=== PATIENT | male | born 1965 | race Caucasian/White ===

== ENCOUNTER 2019-11-16 14:54 | Outpatient (CLI) | payer MEDICARE ==
[2019-11-16 17:38] LABS: HGB - HEMOGLOBIN 10.4 g/dL (14.0-18.0); MEAN CORPUSCULAR HEMOGLOBIN 29.3 pg (27.0-31.0); MEAN CORPUSCULAR VOLUME 94.4 fL (80.0-94.0); MEAN PLATELET VOLUME 10.5 fL (7.4-11.4); RED BLOOD COUNT 3.55 10^6/uL (4.70-6.10); RED CELL DISTRIBUTION WIDTH 13.7 % (12.0-15.0); WHITE BLOOD COUNT 6.8 x10^3/uL (4.8-10.8)
[2019-11-16 20:11] LABS: CALCIUM 8.6 mg/dL (8.5-10.3); CREATININE 5.9 mg/dL (0.6-1.2); PHOSPHORUS 4.7 mg/dL (2.5-4.6); URIC ACID 7.9 mg/dL (2.6-7.2)
== END 2019-11-16 14:55 | disposition home or self-care (01) ==
LOC: LAB.S 14:54
PROVIDERS: ATTEND Internal Medicine Nephrology
DX: N18.5 Chronic kidney disease, stage 5 (principal)
CPT/HCPCS: 36415; 80069; 83970; 84550; 85027

== ENCOUNTER 2020-01-26 15:12 | Outpatient (CLI) | payer MEDICARE | END 2020-01-26 15:13 | disposition EMS.NT | LOC: EMS 15:12 | PROVIDERS: ATTEND Surgery | DX: Z03.89 Encounter for observation for other suspected diseases and conditions ruled out (principal) ==

== ENCOUNTER 2020-04-30 15:52 | Outpatient (CLI) | payer MEDICARE ==
[2020-04-30 16:21] LABS: HGB - HEMOGLOBIN 9.9 g/dL (14.0-18.0); MEAN CORPUSCULAR HGB CONC 32.5 g/dL (32.0-36.0); MEAN CORPUSCULAR VOLUME 92.4 fL (80.0-94.0); MEAN PLATELET VOLUME 9.5 fL (7.4-11.4); RED BLOOD COUNT 3.3 10^6/uL (4.70-6.10); RED CELL DISTRIBUTION WIDTH 13.4 % (12.0-15.0); WHITE BLOOD COUNT 6.9 x10^3/uL (4.8-10.8)
[2020-04-30 16:51] LABS: FERRITIN 99.2 ng/mL (23.9-336.2)
[2020-04-30 17:44] LABS: ALBUMIN 4.9 g/dL (3.2-5.5); CALCIUM 8.8 mg/dL (8.5-10.3); PHOSPHORUS 6.2 mg/dL (2.5-4.6)
[2020-04-30 17:50] LABS: CREATININE 8.4 mg/dL (0.6-1.2)
== END 2020-04-30 15:53 | disposition home or self-care (01) ==
LOC: LAB 15:52
PROVIDERS: ATTEND Internal Medicine Nephrology
DX: N18.5 Chronic kidney disease, stage 5 (principal); D63.1 Anemia in chronic kidney disease
CPT/HCPCS: 36415; 80069; 82728; 83540; 83970; 84466; 85027

== ENCOUNTER 2020-06-01 15:53 | Outpatient (CLI) | payer MEDICARE ==
[2020-06-01 16:23] LABS: HGB - HEMOGLOBIN 10.9 g/dL (14.0-18.0); MEAN CORPUSCULAR HEMOGLOBIN 29.9 pg (27.0-31.0); MEAN CORPUSCULAR HGB CONC 32.3 g/dL (32.0-36.0); MEAN CORPUSCULAR VOLUME 92.3 fL (80.0-94.0); MEAN PLATELET VOLUME 9.6 fL (7.4-11.4); RED BLOOD COUNT 3.65 10^6/uL (4.70-6.10); RED CELL DISTRIBUTION WIDTH 13.5 % (12.0-15.0); WHITE BLOOD COUNT 7.9 x10^3/uL (4.8-10.8)
[2020-06-01 16:46] LABS: ALBUMIN 5.1 g/dL (3.2-5.5); CALCIUM 9.6 mg/dL (8.5-10.3); PHOSPHORUS 5.5 mg/dL (2.5-4.6)
[2020-06-02 12:43] LABS: HEPATITIS B SURFACE ANTIGEN NON-REACTIVE (NON-REACTIVE)
[2020-06-04 13:50] LABS: CREATININE 9.8 mg/dL (0.6-1.2)
== END 2020-06-01 15:54 | disposition home or self-care (01) ==
LOC: LAB 15:53
PROVIDERS: ATTEND Internal Medicine Nephrology
DX: N18.5 Chronic kidney disease, stage 5 (principal)
CPT/HCPCS: 36415; 80069; 85027; 86317; 86704; 87340

== ENCOUNTER 2020-06-30 17:57 | Emergency (ER) | payer MEDICARE, MEDICAID ==
[2020-06-30] MEDS ORDERED: DOXEPIN 10 MG CAPSULE PO STA (18:23)
[2020-06-30] MEDS ORDERED: predniSONE 20 MG TABLET PO STA (18:23)
--- NOTE | 2020-06-30 18:30 | ED Physician Documentation ---
History of Present Illness - Stated complaint Stated Complaint: RT ARM RASH - POST OP - Chief complaint Chief Complaint: Allergic Rx - History obtained from History obtained from: Patient - Additonal information Additional information: 54-year-old gentleman being prepared for dialysis, had a fistula placed at the [facility] on Thursday and within the 48 hours afterwards developed quite itchy rash all over especially the right arm, chest, and posterior neck. No shortness of breath. Review of Systems Constitutional: denies: Fever, Chills Eyes: denies: Loss of vision, Decreased vision Ears: denies: Loss of hearing, Ear pain Nose: denies: Rhinorrhea / runny nose, Congestion PD PAST MEDICAL HISTORY - Present Medications Home Medications: Ambulatory Orders Medication Instructions Recorded Confirmed Doxepin [SINEquan] 10 mg PO TID PRN #14 capsule 06/30/20 predniSONE [Deltasone] 60 mg PO DAILY 5 Days #15 tablet 06/30/20 - Allergies Allergies/Adverse Reactions: Allergies Allergy/AdvReac Type Severity Reaction Status Date / Time gabapentin Allergy Unknown Verified 06/30/20 18:15 Penicillins Allergy Unknown Verified 06/30/20 18:15 povidone-iodine Allergy Unknown Verified 06/30/20 18:15 [From Betadine] soap [From Betadine] Allergy Unknown Verified 06/30/20 18:15 PD ED PE NORMAL - Vitals Vital signs reviewed: Yes - General General: Alert and oriented X 3, No acute distress - HEENT HEENT: PERRL, EOMI - Extremities Extremities: Other (He scratching at himself and has a maculopapular rash that is diffuse but most market on the upper chest, shoulders, posterior neck. Fistula seems to be functioning with positive thrill.) - Neuro Neuro: Alert and oriented X 3, Normal speech Results - Vitals Vitals: Vital Signs - 24 hr 06/30/20 06/30/20 18:15 18:40 Temperature 36.9 C 37.2 C Heart Rate 102 H 84 Respiratory 18 16 Rate Blood Pressure 187/97 H 163/92 H O2 Saturation 98 100 Oxygen O2 Source Room air PD MEDICAL DECISION MAKING - ED course ED course: Suspect this is an allergic Reaction to antibiotics given perioperatively based on the appearance and he was treated with steroids and doxepin. Departure - Departure Disposition: 01 Home, Self Care Clinical Impression: Allergic urticaria Condition: Good Record reviewed to determine appropriate education?: Yes Instructions: ED Drug React Allergic Prescriptions: predniSONE [Deltasone] 60 mg PO DAILY 5 Days #15 tablet Doxepin [SINEquan] 10 mg PO TID PRN #14 capsule PRN Reason: Itching Comments: At your next follow-up visit notify the [facility] that you likely had a drug reaction to something given in the perioperative period. Return if worse. Discharge Date/Time: 06/30/20 19:04
[2020-06-30 18:41] VITALS: BP 163/92
== END 2020-06-30 19:04 | disposition home or self-care (01) ==
LOC: ED 17:57
DX: L50.0 Allergic urticaria (principal)
CPT/HCPCS: 99282; 99283; A9270; J7512

== ENCOUNTER 2020-07-05 17:31 | Emergency (ER) | payer MEDICARE, MEDICAID ==
[2020-07-05 17:58] VITALS: BP 131/73
--- NOTE | 2020-07-05 18:20 | ED Physician Documentation ---
History of Present Illness - Stated complaint Stated Complaint: RASH - Chief complaint Chief Complaint: General - Additonal information Additional information: This document was created in error. please see the other document signed for the same date and encounter PD PAST MEDICAL HISTORY - Past Medical History Past Medical History: Yes Cardiovascular: Hypertension, Arrhythmia Respiratory: None Neuro: Peripheral neuropathy, Seizure disorder Endocrine/Autoimmune: None GI: None : Dialysis, Renal insuffiency HEENT: None Musculoskeletal: Osteoarthritis, Gout Derm: Eczema, Psoriasis - Past Surgical History Past Surgical History: Yes General: Gastric surgery Ortho: Amputation - Present Medications Home Medications: Ambulatory Orders Medication Instructions Recorded Confirmed Doxepin [SINEquan] 10 mg PO TID PRN #14 capsule 06/30/20 predniSONE [Deltasone] 60 mg PO DAILY 5 Days #15 tablet 06/30/20 Hydrocortisone [Procto-Med Hc] 30 gm RC BID #1 tube 07/05/20 - Allergies Allergies/Adverse Reactions: Allergies Allergy/AdvReac Type Severity Reaction Status Date / Time gabapentin Allergy Unknown Verified 07/05/20 17:54 Penicillins Allergy Unknown Verified 07/05/20 17:54 povidone-iodine Allergy Unknown Verified 07/05/20 17:54 [From Betadine] soap [From Betadine] Allergy Unknown Verified 07/05/20 17:54 - Social History Does the pt smoke?: No Smoking Status: Never smoker Does the pt drink ETOH?: No Does the pt have substance abuse?: No - Immunizations Immunizations are current?: Yes - POLST Patient has POLST: No Results - Vitals Vitals: Vital Signs - 24 hr 07/05/20 07/05/20 07/05/20 17:54 17:58 18:30 Temperature 37.4 C 37.4 C Heart Rate 64 64 90 Respiratory 16 16 16 Rate Blood Pressure 131/73 H 131/73 H 131/73 H O2 Saturation 95 100 100 Oxygen O2 Source Room air Departure - Departure Disposition: 01 Home, Self Care Clinical Impression: Rash and nonspecific skin eruption Condition: Stable Follow-Up: Rima Boyd MD [Primary Care Provider] - Prescriptions: Hydrocortisone [Procto-Med Hc] 30 gm RC BID #1 tube Comments: Rao your rash may be secondary to your kidney failure. On exam your skin appears excessively dry. I would like you to apply a good moisturizer to all of your skin including your face. I think this will help with the itch. For the faint rash on your hands please apply the steroid cream twice a day. If you find that the rash is worsening, you have blistering of your skin, the rash is present in your mouth or you have any other emergent concerns please return to the emergency department Discharge Date/Time: 07/05/20 18:37
--- NOTE | 2020-07-05 18:22 | ED Physician Documentation ---
History of Present Illness - Stated complaint Stated Complaint: RASH - Chief complaint Chief Complaint: General - History of Present Illness Timing: How many weeks ago (1) - Additonal information Additional information: 54-year-old male presents to the emergency department for evaluation of a pruritic rash. He was seen for similar about 5 days ago and it was thought to possibly be an allergic drug eruption. He was given doxepin in the ER and a prescription for steroids. However he only took the steroids for 2 days secondary to GI upset. This gentleman recently had a fistula placed in his right upper arm with the anticipation of starting dialysis next month. He reports the rash as intensely pruritic and he feels like his lips are chapped. He states that sometimes his face feels tingly.This gentleman has had no fevers, the rash is only present on his arms and face. Not present on his right leg or left thigh. no tongue or lips swelling. no dyspnea. He continues to make urine Review of Systems Constitutional: reports: Reviewed and negative Eyes: reports: Reviewed and negative Ears: reports: Reviewed and negative Nose: reports: Reviewed and negative Throat: reports: Reviewed and negative Cardiac: reports: Reviewed and negative Respiratory: reports: Reviewed and negative GI: reports: Reviewed and negative : reports: Reviewed and negative Skin: reports: Rash Musculoskeletal: reports: Reviewed and negative, Other (Left AKA) PD PAST MEDICAL HISTORY - Past Medical History Past Medical History: Yes Cardiovascular: Hypertension, Arrhythmia Respiratory: None Neuro: Peripheral neuropathy, Seizure disorder Endocrine/Autoimmune: None GI: None : Dialysis, Renal insuffiency HEENT: None Musculoskeletal: Osteoarthritis, Gout Derm: Eczema, Psoriasis - Past Surgical History Past Surgical History: Yes General: Gastric surgery Ortho: Amputation - Present Medications Home Medications: Ambulatory Orders Medication Instructions Recorded Confirmed Doxepin [SINEquan] 10 mg PO TID PRN #14 capsule 06/30/20 predniSONE [Deltasone] 60 mg PO DAILY 5 Days #15 tablet 06/30/20 Hydrocortisone [Procto-Med Hc] 30 gm RC BID #1 tube 07/05/20 - Allergies Allergies/Adverse Reactions: Allergies Allergy/AdvReac Type Severity Reaction Status Date / Time gabapentin Allergy Unknown Verified 07/05/20 17:54 Penicillins Allergy Unknown Verified 07/05/20 17:54 povidone-iodine Allergy Unknown Verified 07/05/20 17:54 [From Betadine] soap [From Betadine] Allergy Unknown Verified 07/05/20 17:54 - Social History Does the pt smoke?: No Smoking Status: Never smoker Does the pt drink ETOH?: No Does the pt have substance abuse?: No - Immunizations Immunizations are current?: Yes - POLST Patient has POLST: No PD ED PE EXPANDED - General General: Alert, No acute distress, Well developed/nourished - HEENT HEENT: Atraumatic, PERRL - Neck Neck: Supple w/out meningeal sx. No: Adenopathy - Cardiac Cardiac: Regular Rate, Regular Rhythm, Murmur Present, Radial strong equal (2+ left radial. 1+ right radial and 1+ right ulnar. + bruit and thrill right UE fistula. mild swellign right forearm. soft compartment. normal movement of the RUE), Cap refill < 2 sec - Respiratory Respiratory: Clear to ausultation annalisa. No: Distress, Stridor - Abdomen Abdomen: Normal Bowel sounds. No: Tender to palpation - Back Back: Normal exam - Derm Derm: Normal color, Other (Very faint slightly raised macular rash on the dorsum of both hands. His skin in general looks dry. No rash is seen on face lips or oral mucosa.) Results - Vitals Vitals: Vital Signs - 24 hr 07/05/20 07/05/20 17:54 17:58 Temperature 37.4 C 37.4 C Heart Rate 64 64 Respiratory 16 16 Rate Blood Pressure 131/73 H 131/73 H O2 Saturation 95 100 Oxygen O2 Source Room air PD MEDICAL DECISION MAKING - ED course Complexity details: reviewed old records, re-evaluated patient, considered differential, d/w patient ED course: 54-year-old male re-presents to the emergency department for evaluation of a pruritic rash mostly on the dorsum of both of his hands. He also reports that he is been having tingling in his face and feels that his lips are chapped. He was seen for this about 5 days ago and a prescription for prednisone was issued but he only took it for 2 days secondary to GI discomfort. The etiology of this rashes not certain however I am suspicious that he is developing uremic urticaria secondary to his chronic kidney disease. He is scheduled to begin dialysis in a few weeks. Do recommend that this gentleman apply a good emollient or a moisturizer to all of his skin as I believe that that will help with the itching. I also recommend limited amount of steroid cream such as hydrocortisone on the dorsum of the hands. Departure - Departure Disposition: 01 Home, Self Care Clinical Impression: Rash and nonspecific skin eruption Condition: Stable Record reviewed to determine appropriate education?: Yes Follow-Up: Rima Boyd MD [Primary Care Provider] - Prescriptions: Hydrocortisone [Procto-Med Hc] 30 gm RC BID #1 tube Comments: Rao your rash may be secondary to your kidney failure. On exam your skin appears excessively dry. I would like you to apply a good moisturizer to all of your skin including your face. I think this will help with the itch. For the faint rash on your hands please apply the steroid cream twice a day. If you find that the rash is worsening, you have blistering of your skin, the rash is present in your mouth or you have any other emergent concerns please return to the emergency department
== END 2020-07-05 18:37 | disposition home or self-care (01) ==
LOC: ED 17:31
DX: R21 Rash and other nonspecific skin eruption (principal); I12.0 Hypertensive chronic kidney disease with stage 5 chronic kidney disease or end stage renal disease; N18.6 End stage renal disease
CPT/HCPCS: 99282; 99284

== ENCOUNTER 2020-07-23 11:06 | Emergency (ER) | payer MEDICARE, MEDICAID ==
--- NOTE | 2020-07-23 13:04 | ED Physician Documentation ---
History of Present Illness - Stated complaint Stated Complaint: POST OP WOUND CHECK - Chief complaint Chief Complaint: General - History obtained from History obtained from: Patient - Additonal information Additional information: Patient comes emergency department complaining of a small area of redness over his relatively newly placed dialysis fistula site. On his right forearm. Patient denies any fevers or chills. No body aches. No streaking. He does note that his crutches have armbands that do sometimes rub on the area. He states the area seems mildly sore. He is not yet receiving dialysis through the shunt. The patient does note that he has had swelling in the arm ever since the shunt placement 1 month ago. No other complaints at this time. Review of Systems Ten Systems: 10 systems reviewed and negative Constitutional: reports: Reviewed and negative Eyes: reports: Reviewed and negative Ears: reports: Reviewed and negative Nose: reports: Reviewed and negative Throat: reports: Reviewed and negative Cardiac: reports: Reviewed and negative Respiratory: reports: Reviewed and negative GI: reports: Reviewed and negative : reports: Reviewed and negative Skin: reports: Other (Redness) Musculoskeletal: reports: Reviewed and negative Neurologic: reports: Reviewed and negative Psychiatric: reports: Reviewed and negative Endocrine: reports: Reviewed and negative Immunocompromised: reports: Reviewed and negative PD PAST MEDICAL HISTORY - Past Medical History Past Medical History: Yes Cardiovascular: Hypertension, Arrhythmia Respiratory: None Neuro: Peripheral neuropathy, Seizure disorder Endocrine/Autoimmune: None GI: None : Dialysis, Renal insuffiency HEENT: None Musculoskeletal: Osteoarthritis, Gout Derm: Eczema, Psoriasis Other Past Medical History: Stage V chronic kidnew dx - Past Surgical History Past Surgical History: Yes General: Gastric surgery Ortho: Amputation - Present Medications Home Medications: Ambulatory Orders Medication Instructions Recorded Confirmed Doxepin [SINEquan] 10 mg PO TID PRN #14 capsule 06/30/20 predniSONE [Deltasone] 60 mg PO DAILY 5 Days #15 tablet 06/30/20 Hydrocortisone [Procto-Med Hc] 30 gm RC BID #1 tube 07/05/20 Clindamycin HCl [Clindamycin 300MG 300 mg PO Q6H #28 capsule 07/23/20 CAP] - Allergies Allergies/Adverse Reactions: Allergies Allergy/AdvReac Type Severity Reaction Status Date / Time gabapentin Allergy Unknown Verified 07/23/20 11:39 Penicillins Allergy Unknown Verified 07/23/20 11:39 povidone-iodine Allergy Unknown Verified 07/23/20 11:39 [From Betadine] soap [From Betadine] Allergy Unknown Verified 07/23/20 11:39 - Social History Does the pt smoke?: No Smoking Status: Never smoker Does the pt drink ETOH?: Yes Does the pt have substance abuse?: Yes Substance Use and Type: Marijuana - Immunizations Immunizations are current?: Yes - POLST Patient has POLST: No PD ED PE NORMAL - Vitals Vital signs reviewed: Yes - General General: Alert and oriented X 3, No acute distress - HEENT HEENT: Atraumatic, PERRL, EOMI, Moist mucous membranes - Neck Neck: Supple, no meningeal sign - Cardiac Cardiac: Strong equal pulses, Other (Pulsating AV fistula in right forearm with good thrill.) - Respiratory Respiratory: No respiratory distress - Derm Derm: Warm and dry, Other (Well-healed, healthy-appearing surgical site in patient's right forearm for dialysis fistula. Approximately 2 cm x 3 cm erythematous area along the wound without dehiscence. No fluctuance or induration. Area is mildly tender. Intensity of erythema is moderate.) - Extremities Extremities: No deformity, Other (Mild edema of right arm and hand. Incidentally, left AKA noted.) - Neuro Neuro: Alert and oriented X 3, Other - Psych Psych: Normal mood, Normal affect Results - Vitals Vitals: Vital Signs - 24 hr 07/23/20 11:39 Temperature 36.6 C Heart Rate 76 Respiratory 18 Rate Blood Pressure 153/72 H O2 Saturation 98 Oxygen O2 Source Room air PD MEDICAL DECISION MAKING - ED course Complexity details: considered differential, d/w patient ED course: I discussed with the patient that at this point in time, it is not clear whether he has an early cellulitis or whether he just has some irritation and inflammation over his incision from friction from his crutch cough. We have discussed that if the patient feels comfortable doing so, he may observe the area of redness over the next 12 to 24 hours and see if it grows. If it does, he should start his antibiotics. If not, then he may hold off and see if this goes away on its own, as he has no associated symptoms and his stated that the area has not really expanded since yesterday. I am giving him a prescription for clindamycin, which he states is the preferred antibiotic that his neph rologist has requested that he have for skin infection. We have discussed home management, as well as usual indications for return. Departure - Departure Disposition: 01 Home, Self Care Clinical Impression: Cellulitis Qualifiers: Site of cellulitis: extremity Site of cellulitis of extremity: upper extremity Laterality: right Qualified Code(s): L03.113 - Cellulitis of right upper limb Condition: Stable Instructions: ED Infec Skin Cellulitis Prescriptions: Clindamycin HCl [Clindamycin 300MG CAP] 300 mg PO Q6H #28 capsule Comments: You have a very small area of redness involving part of your fistula. It is not clear if this is from a cellulitis/skin infection versus just irritation from friction. If you feel comfortable doing so, you may observe the area over the next 12 to 24 hours and see if the area of redness is growing. If it is not, then it is unlikely that this is an infection. If it does seem to be expanding, then you should start the antibiotics which have been prescribed.
[2020-07-23 13:09] VITALS: BP 130/68
== END 2020-07-23 13:34 | disposition home or self-care (01) ==
LOC: ED 11:06
DX: L03.113 Cellulitis of right upper limb (principal); N18.5 Chronic kidney disease, stage 5; Z89.612 Acquired absence of left leg above knee; Z99.2 Dependence on renal dialysis
CPT/HCPCS: 36415; 80069; 83970; 85027; 87340; 99282; 99284

== ENCOUNTER 2020-07-23 13:40 | Outpatient (CLI) | payer MEDICARE, MEDICAID ==
[2020-07-23 14:10] LABS: HGB - HEMOGLOBIN 8.6 g/dL (14.0-18.0); MEAN CORPUSCULAR HEMOGLOBIN 29.4 pg (27.0-31.0); MEAN CORPUSCULAR HGB CONC 30.8 g/dL (32.0-36.0); MEAN CORPUSCULAR VOLUME 95.2 fL (80.0-94.0); RED BLOOD COUNT 2.93 10^6/uL (4.70-6.10); RED CELL DISTRIBUTION WIDTH 13.7 % (12.0-15.0)
[2020-07-23 14:37] LABS: CALCIUM 8.7 mg/dL (8.5-10.3); PHOSPHORUS 6.7 mg/dL (2.5-4.6)
[2020-07-24 13:44] LABS: HEPATITIS B SURFACE ANTIGEN NON-REACTIVE (NON-REACTIVE)
== END 2020-07-23 13:41 | disposition home or self-care (01) ==
LOC: LAB 13:40
PROVIDERS: ATTEND Internal Medicine Nephrology
DX: N18.5 Chronic kidney disease, stage 5 (principal)
CPT/HCPCS: 36415; 80069; 83970; 85027; 87340

== ENCOUNTER 2020-08-01 09:00 | Emergency (ER) | payer MEDICARE, MEDICAID ==
--- NOTE | 2020-08-01 09:26 | ED Physician Documentation ---
PD HPI UPPER EXT INJURY - Stated complaint Stated Complaint: RT ARM SWELLING - POST DIALYSIS - Chief complaint Chief Complaint: Ext Problem - History obtained from History obtained from: Patient - Additonal information Additional information: He has a dialysis graft in the right upper extremity. It was finished on June 26 and they started using it on July 26. He had 2 successful dialysis sessions with the graft but yesterday in dialysis after the placement of the first needle it became immediately quite swollen and painful. They were unable to complete the dialysis. Review of Systems Constitutional: reports: Reviewed and negative Throat: reports: Reviewed and negative Cardiac: reports: Reviewed and negative Respiratory: reports: Reviewed and negative PD PAST MEDICAL HISTORY - Past Medical History Cardiovascular: Hypertension, Arrhythmia Respiratory: None Neuro: Peripheral neuropathy, Seizure disorder Endocrine/Autoimmune: None GI: None : Dialysis, Renal insuffiency HEENT: None Musculoskeletal: Osteoarthritis, Gout Derm: Eczema, Psoriasis - Past Surgical History Past Surgical History: Yes General: Gastric surgery Ortho: Amputation - Present Medications Home Medications: Ambulatory Orders Medication Instructions Recorded Confirmed Doxepin [SINEquan] 10 mg PO TID PRN #14 capsule 06/30/20 predniSONE [Deltasone] 60 mg PO DAILY 5 Days #15 tablet 06/30/20 Hydrocortisone [Procto-Med Hc] 30 gm RC BID #1 tube 07/05/20 Clindamycin HCl [Clindamycin 300MG 300 mg PO Q6H #28 capsule 07/23/20 CAP] - Allergies Allergies/Adverse Reactions: Allergies Allergy/AdvReac Type Severity Reaction Status Date / Time gabapentin Allergy Unknown Verified 08/01/20 09:18 Penicillins Allergy Unknown Verified 08/01/20 09:18 povidone-iodine Allergy Unknown Verified 08/01/20 09:18 [From Betadine] soap [From Betadine] Allergy Unknown Verified 08/01/20 09:18 - Social History Does the pt smoke?: No Smoking Status: Never smoker Does the pt drink ETOH?: Yes Does the pt have substance abuse?: Yes - Immunizations Immunizations are current?: Yes - POLST Patient has POLST: No PD ED PE NORMAL - Vitals Vital signs reviewed: Yes - General General: Alert and oriented X 3, No acute distress - HEENT HEENT: PERRL, EOMI - Extremities Extremities: No deformity (Status post left AKA), Other (The right upper extremity is edematous, tender especially medial to the bicep. There is a thrill. Distal pulses are normal. No evidence of infection.) - Neuro Neuro: Alert and oriented X 3, Normal speech - Psych Psych: Normal mood, Normal affect Results - Vitals Vitals: Vital Signs - 24 hr 08/01/20 08/01/20 09:11 10:15 Temperature 37.3 C 36.6 C Heart Rate 80 78 Respiratory 20 Rate Blood Pressure 103/51 L O2 Saturation 99 99 Oxygen O2 Source Room air - Labs Labs: Laboratory Tests 08/01/20 08/01/20 08/01/20 09:37 09:37 09:37 WBC 7.1 RBC 2.69 L Hgb 8.0 L Hct 26.6 L MCV 98.9 H MCH 29.7 MCHC 30.1 L RDW 14.5 Plt Count 359 MPV 9.3 Neut # (Auto) 4.6 Lymph # (Auto) 1.0 L [place] # (Auto) 0.6 Eos # (Auto) 0.9 H Baso # (Auto) 0.1 Absolute Nucleated RBC 0.00 Nucleated RBC % 0.0 PT 12.5 INR 1.1 Sodium 137 Potassium 5.0 Chloride 99 L Carbon Dioxide 25 Anion Gap 13.0 BUN 81 H* Creatinine 8.9 H* Estimated GFR (MDRD) 6 L Glucose 91 Calcium 8.6 PD MEDICAL DECISION MAKING - ED course ED course: 55-year-old gentleman on dialysis presents with right upper extremity swelling that happened fairly acutely during access of his graft. Ultrasound shows no vascular issue. This is all very consistent with infiltration and local bleeding in the subcutaneous area and muscle. No evidence of infection. Case discussed with vascular surgery in [place], recommends conservative treatment and continuing dialysis if able. Nephrology can refer him for alternative access if necessary. Departure - Departure Disposition: 01 Home, Self Care Clinical Impression: AV graft malfunction Qualifiers: Encounter type: initial encounter Qualified Code(s): T82.590A - [facility] hanical complication of surgically created arteriovenous fistula, initial encounter Condition: Good Record reviewed to determine appropriate education?: Yes Instructions: Hemodialysis Create Access Comments: An ultrasound was done today showing no problem with the vascular structures. Probably just had some bleeding after they accessed the graft and it went into the subcutaneous tissues and muscle. They should still try to access the graft around the affected area so that she can have dialysis. If they need an alternative site your procurement engineer needs to get you to the vascular surgeon again. Return if worsening.
[2020-08-01 09:40] LABS: BASOPHILS # (AUTO) 0.1 10^3/uL (0.0-0.1); BASOPHILS % (AUTO) 1.5 %; EOSINOPHILS # (AUTO) 0.9 10^3/uL (0.0-0.7); EOSINOPHILS % (AUTO) 11.9 %; LYMPHOCYTES % (AUTO) 14.1 %; MEAN CORPUSCULAR HEMOGLOBIN 29.7 pg (27.0-31.0); MEAN CORPUSCULAR HGB CONC 30.1 g/dL (32.0-36.0); MEAN CORPUSCULAR VOLUME 98.9 fL (80.0-94.0); MEAN PLATELET VOLUME 9.3 fL (7.4-11.4); MONOCYTES # (AUTO) 0.6 10^3/uL (0.0-1.0); NEUTROPHILS # (AUTO) 4.6 10^3/uL (1.5-6.6); NEUTROPHILS % (AUTO) 63.9 %; PLT - PLATELET COUNT 359 10^3/uL (130-450); RED BLOOD COUNT 2.69 10^6/uL (4.70-6.10); RED CELL DISTRIBUTION WIDTH 14.5 % (12.0-15.0); WHITE BLOOD COUNT 7.1 x10^3/uL (4.8-10.8)
[2020-08-01 09:54] LABS: INR 1.1 (0.8-1.2); PT - PROTHROMBIN TIME 12.5 secs (9.9-12.6)
[2020-08-01 09:58] LABS: CALCIUM 8.6 mg/dL (8.5-10.3)
[2020-08-01 10:00] LABS: CREATININE 8.9 mg/dL (0.6-1.2)
--- NOTE | 2020-08-01 11:26 | Ultrasound Report ---
PROCEDURE: Duplex Ext Veins Right INDICATIONS: RUE swelling, dialysis graft TECHNIQUE: Real-time imaging, as well as color and pulse Doppler interrogation, were performed of the right uppe r extremity deep veins. COMPARISON: None. FINDINGS: The deep veins are normally compressible, and free of intraluminal thrombus. Color and pu lse Doppler demonstrate normal phasic intraluminal flow. There is normal augmentation response to di stal compression maneuver. Right IJ, subclavian vein, axillary vein, and brachial vein are patent. Di stal brachial vein at at the dialysis graft is patent. The graft is patent throughout. No obvious pse udoaneurysm. Medial tibial vein, radial, and ulnar veins are patent. The cephalic vein is patent. There is subcutaneous edema in the region of clinical concern in the region of the medial upper right upper extremity. There are echogenic foci with posterior acoustic shadowing in the medial right uppe r arm. IMPRESSION: No right upper extremity DVT demonstrated. The dialysis graft is patent. Subcutaneous edema and echogenic foci with posterior acoustic shadowing in the medial right upper arm . This could be due to subcutaneous calcifications. Results were discussed with Ronan Celis at time of dictation. No skin erythema or crepitus. Reviewed by: Russ Gutierrez MD on 08/01/2020 11:24 AM PDT Approved by: Russ Gutierrez MD on 08/01/2020 11:24 AM PDT Station ID: [id number]
[2020-08-01 12:02] VITALS: BP 106/68
== END 2020-08-01 12:14 | disposition home or self-care (01) ==
LOC: ED 09:00
DX: T82.590A Other mechanical complication of surgically created arteriovenous fistula, initial encounter (principal); I10 Essential (primary) hypertension; G62.9 Polyneuropathy, unspecified; N28.9 Disorder of kidney and ureter, unspecified; Z99.2 Dependence on renal dialysis
CPT/HCPCS: 36415; 80048; 85025; 85610; 99283; 99284

== ENCOUNTER 2021-02-26 17:00 | Outpatient (CLI) | payer MEDICARE, MEDICAID | END 2021-02-26 17:01 | disposition critical access hospital (66) | LOC: EMS 17:00 | DX: R05 Cough (principal); I10 Essential (primary) hypertension | CPT/HCPCS: A0425; A0429 ==

== ENCOUNTER 2021-02-26 17:24 | Emergency (ER) | payer MEDICARE, MEDICAID ==
--- NOTE | 2021-02-26 18:12 | ED Physician Documentation ---
History of Present Illness - Stated complaint Stated Complaint: BRBPR - Chief complaint Chief Complaint: General - History obtained from History obtained from: Patient - History of Present Illness Timing: Today Pain level max: 0 Pain level now: 0 - Additonal information Additional information: Patient is a 55-year-old male who was at dialysis today. He states that he had a bowel movement and there was a small amount of blood on the toilet paper, bright red. States similar to past hemorrhoids. He states that the nurse called 911 and brought him to the emergency department. He denies any abdominal pain. No vomiting. No lightheadedness, no dizziness. He states that a few days ago he did cough up a drop of blood. Has not recurred since. Does not have any current chest pain. No recent travel, antibiotics. Nothing makes it better or worse Review of Systems Constitutional: denies: Fever, Chills Ears: denies: Ear pain Nose: denies: Rhinorrhea / runny nose, Congestion Throat: denies: Sore throat Cardiac: denies: Chest pain / pressure, Palpitations Respiratory: reports: Cough (Chronic, unchanged). denies: Dyspnea, Wheezing GI: denies: Abdominal Pain, Nausea, Vomiting, Constipation, Diarrhea : denies: Dysuria, Frequency, Hesitancy Skin: denies: Rash Musculoskeletal: denies: Neck pain, Back pain Neurologic: denies: Headache PD PAST MEDICAL HISTORY - Past Medical History Past Medical History: Yes Cardiovascular: Hypertension, Arrhythmia Respiratory: None Neuro: Peripheral neuropathy, Seizure disorder Endocrine/Autoimmune: None GI: None : Dialysis, Renal insuffiency HEENT: None Musculoskeletal: Osteoarthritis, Gout Derm: Eczema, Psoriasis - Past Surgical History Past Surgical History: Yes General: Gastric surgery Ortho: Amputation - Present Medications Home Medications: Ambulatory Orders Medication Instructions Recorded Confirmed Doxepin [SINEquan] 10 mg PO TID PRN #14 capsule 06/30/20 predniSONE [Deltasone] 60 mg PO DAILY 5 Days #15 tablet 06/30/20 Hydrocortisone [Procto-Med Hc] 30 gm RC BID #1 tube 07/05/20 Clindamycin HCl [Clindamycin 300MG 300 mg PO Q6H #28 capsule 07/23/20 CAP] Hydrocortisone [Anusol-Hc] 1 applic RC BID #1 tub 02/26/21 - Allergies Allergies/Adverse Reactions: Allergies Allergy/AdvReac Type Severity Reaction Status Date / Time gabapentin Allergy Unknown Verified 02/26/21 17:39 Penicillins Allergy Unknown Verified 02/26/21 17:39 povidone-iodine Allergy Unknown Verified 02/26/21 17:39 [From Betadine] soap [From Betadine] Allergy Unknown Verified 02/26/21 17:39 - Social History Does the pt smoke?: Yes Smoking Status: Current every day smoker Does the pt drink ETOH?: Yes Does the pt have substance abuse?: Yes Substance Use and Type: Marijuana - Immunizations Immunizations are current?: Yes - POLST Patient has POLST: No PD ED PE NORMAL - Vitals Vital signs reviewed: Yes - General General: Alert and oriented X 3, No acute distress, Well developed/nourished - HEENT HEENT: Moist mucous membranes - Neck Neck: Supple, no meningeal sign - Cardiac Cardiac: RRR, Strong equal pulses - Respiratory Respiratory: No respiratory distress, Clear bilaterally - Abdomen Abdomen: Soft, Non tender, Non distended - Rectal Rectal: Other (There is a moderate size external hemorrhoid. A small amount of bleeding noted from a erythematous area.) - Derm Derm: Warm and dry - Extremities Extremities: No edema, No calf tenderness / cord - Neuro Neuro: Alert and oriented X 3 - Psych Psych: Normal mood, Normal affect Results - Vitals Vitals: Vital Signs - 24 hr 02/26/21 02/26/21 02/26/21 17:29 17:39 18:35 Temperature 37.4 C Heart Rate 78 110 H 116 H Respiratory 14 16 18 Rate Blood Pressure 187/100 H 182/89 H 196/88 H O2 Saturation 91 L 92 93 Oxygen O2 Source Room air - Labs Labs: Laboratory Tests 02/26/21 02/26/21 02/26/21 18:15 18:15 18:15 WBC 8.1 RBC 3.54 L Hgb 11.2 L Hct 33.0 L MCV 93.2 MCH 31.6 H MCHC 33.9 RDW 14.2 Plt Count 194 MPV 8.9 Neut # (Auto) 6.6 Lymph # (Auto) 0.5 L [place] # (Auto) 0.8 Eos # (Auto) 0.2 Baso # (Auto) 0.1 Absolute Nucleated RBC 0.00 Nucleated RBC % 0.0 PT 13.6 H INR 1.2 APTT 28.6 Sodium 135 Potassium 3.8 Chloride 94 L Carbon Dioxide 24 Anion Gap 17.0 H BUN 36 H Creatinine 7.2 H* Estimated GFR (MDRD) 8 L Glucose 93 Calcium 8.7 Total Bilirubin 1.1 H AST 24 ALT 19 Alkaline Phosphatase 90 Total Protein 7.2 Albumin 4.3 Globulin 2.9 Albumin/Globulin Ratio 1.5 Lipase 21 L PD MEDICAL DECISION MAKING - ED course Complexity details: considered differential, d/w patient ED course: 55-year-old male with a small bleeding hemorrhoid. The bleeding resolved in the emergency department. Patient refuses any blood work or further evaluation at this time. We will place him on Anusol HC and have him follow-up with his doctor. Patient also states that he has chronic intermittent tachycardia and does not want any medication for this or work-up. This document was made in part using voice recognition software. While efforts are made to proofread this document, sound alike and grammatical errors may occur. Departure - Departure Disposition: 01 Home, Self Care Clinical Impression: Hemorrhoid Qualifiers: Hemorrhoid type: unspecified Qualified Code(s): K64.9 - Unspecified hemorrhoids Condition: Good Instructions: ED Hemorrhoids Follow-Up: DELANEY OBRIEN [Primary Care Provider] - Within 1 week Prescriptions: Hydrocortisone [Anusol-Hc] 1 applic RC BID #1 tub Comments: Prescription was sent to [facility] in [place]. Follow-up with your doctor for further care. Return if you worsen Discharge Date/Time: 02/26/21 18:45
[2021-02-26 18:21] LABS: BASOPHILS # (AUTO) 0.1 10^3/uL (0.0-0.1); EOSINOPHILS # (AUTO) 0.2 10^3/uL (0.0-0.7); EOSINOPHILS % (AUTO) 2.1 %; HGB - HEMOGLOBIN 11.2 g/dL (14.0-18.0); LYMPHOCYTES # (AUTO) 0.5 10^3/uL (1.5-3.5); LYMPHOCYTES % (AUTO) 5.6 %; MEAN CORPUSCULAR HEMOGLOBIN 31.6 pg (27.0-31.0); MEAN CORPUSCULAR HGB CONC 33.9 g/dL (32.0-36.0); MEAN CORPUSCULAR VOLUME 93.2 fL (80.0-94.0); MEAN PLATELET VOLUME 8.9 fL (7.4-11.4); MONOCYTES # (AUTO) 0.8 10^3/uL (0.0-1.0); MONOCYTES % (AUTO) 9.4 %; NEUTROPHILS # (AUTO) 6.6 10^3/uL (1.5-6.6); NEUTROPHILS % (AUTO) 81.8 %; PLT - PLATELET COUNT 194 10^3/uL (130-450); RED BLOOD COUNT 3.54 10^6/uL (4.70-6.10); RED CELL DISTRIBUTION WIDTH 14.2 % (12.0-15.0); WHITE BLOOD COUNT 8.1 x10^3/uL (4.8-10.8)
[2021-02-26 18:28] LABS: INR 1.2 (0.8-1.2); PT - PROTHROMBIN TIME 13.6 secs (9.9-12.6)
[2021-02-26 18:35] LABS: PARTIAL THROMBOPLASTIN TIME 28.6 secs (24.9-33.3)
[2021-02-26 18:36] LABS: ALBUMIN 4.3 g/dL (3.2-5.5); ALBUMIN/GLOBULIN RATIO 1.5 (1.0-2.2); BILIRUBIN,TOTAL 1.1 mg/dL (0.2-1.0); CALCIUM 8.7 mg/dL (8.5-10.3); POTASSIUM 3.8 mmol/L (3.5-5.0); TOTAL PROTEIN 7.2 g/dL (6.7-8.2)
[2021-02-26 18:37] LABS: CREATININE 7.2 mg/dL (0.6-1.2)
[2021-02-26 18:40] VITALS: BP 196/88
== END 2021-02-26 18:45 | disposition home or self-care (01) ==
LOC: EDUNIT# → ED 17:24 → SUPCPDRO 17:24 → ED 18:45
DX: K64.4 Residual hemorrhoidal skin tags (principal); K62.5 Hemorrhage of anus and rectum; I10 Essential (primary) hypertension; N28.9 Disorder of kidney and ureter, unspecified; Z99.2 Dependence on renal dialysis; F17.200 Nicotine dependence, unspecified, uncomplicated
CPT/HCPCS: 36415; 80053; 83690; 85025; 85610; 85730; 99283; 99284

== ENCOUNTER 2021-03-23 00:22 | Outpatient (CLI) | payer MEDICARE, MEDICAID | END 2021-03-23 00:23 | disposition critical access hospital (66) | LOC: EMS 00:22 | DX: R06.02 Shortness of breath (principal) | CPT/HCPCS: A0425; A0427 ==

== ENCOUNTER 2021-03-23 00:57 | Emergency (ER) | payer MEDICARE, MEDICAID ==
--- OUTSIDE RECORDS SUMMARY | 2021-03-23 01:20 | EXTERNAL MEDICAL SUMMARY RPT | Continuity of Care Document ---
:1965 Demographics Phone Unavailable Preferred Language Unknown Marital Status Unknown Taoist Affiliation Unknown Race Unknown Ethnic Group Unknown Author Organization [facility] Address [address] [place] [address] Phone Allergies Encounters Medications Problems Results
[2021-03-23 01:32] LABS: BASOPHILS # (AUTO) 0.1 10^3/uL (0.0-0.1); BASOPHILS % (AUTO) 0.8 %; EOSINOPHILS # (AUTO) 0.4 10^3/uL (0.0-0.7); HCT - HEMATOCRIT 29.8 % (42.0-52.0); HGB - HEMOGLOBIN 9.8 g/dL (14.0-18.0); LYMPHOCYTES # (AUTO) 0.4 10^3/uL (1.5-3.5); MEAN CORPUSCULAR HEMOGLOBIN 31.8 pg (27.0-31.0); MEAN CORPUSCULAR HGB CONC 32.9 g/dL (32.0-36.0); MEAN CORPUSCULAR VOLUME 96.8 fL (80.0-94.0); MEAN PLATELET VOLUME 8.8 fL (7.4-11.4); MONOCYTES # (AUTO) 0.5 10^3/uL (0.0-1.0); MONOCYTES % (AUTO) 4.5 %; NEUTROPHILS # (AUTO) 10.3 10^3/uL (1.5-6.6); NEUTROPHILS % (AUTO) 88.3 %; PLT - PLATELET COUNT 236 10^3/uL (130-450); RED BLOOD COUNT 3.08 10^6/uL (4.70-6.10); RED CELL DISTRIBUTION WIDTH 15.1 % (12.0-15.0); WHITE BLOOD COUNT 11.7 x10^3/uL (4.8-10.8)
[2021-03-23 01:55] LABS: ALBUMIN 3.6 g/dL (3.2-5.5); ALBUMIN/GLOBULIN RATIO 1.4 (1.0-2.2); BILIRUBIN,TOTAL 0.5 mg/dL (0.2-1.0); POTASSIUM 3.7 mmol/L (3.5-5.0); TOTAL PROTEIN 6.1 g/dL (6.7-8.2)
[2021-03-23 02:02] LABS: CREATININE 7.9 mg/dL (0.6-1.2)
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
[2021-03-23 03:48] LABS: B. PARAPERTUSSIS- RESP PCR PAN NOT DETECTED; B. PERTUSSIS- RESP PCR PANEL NOT DETECTED; C. PNEUMONIAE- RESP PCR PANEL NOT DETECTED; CORONAVIRUS 229E-RESP PCR NOT DETECTED; CORONAVIRUS HKU1-RESP PCR NOT DETECTED; CORONAVIRUS NL63-RESP PCR NOT DETECTED; CORONAVIRUS OC43-RESP PCR NOT DETECTED; HUMAN METAPNEUMOVIRUS NOT DETECTED; INFLUENZA A- RESP PCR PANEL NOT DETECTED; INFLUENZA B - RESP PCR PANEL NOT DETECTED; M. PNEUMONIAE- RESP PCR PANEL NOT DETECTED; PARAINFLUENZA VIRUS 1 NOT DETECTED; PARAINFLUENZA VIRUS 2 NOT DETECTED; PARAINFLUENZA VIRUS 3 NOT DETECTED; PARAINFLUENZA VIRUS 4 NOT DETECTED; RHINOVIRUS/ENTEROVIRUS NOT DETECTED; RSV- RESP PCR PANEL NOT DETECTED; SARS-CoV-2 -RESP PCR PANEL NOT DETECTED
[2021-03-23] MEDS ORDERED: oxyCODONE 5 MG TABLET PO STA ×2 (04:29→12:18)
[2021-03-23] MEDS ORDERED: LORazepam 0.5 MG TABLET PO STA (04:29)
[2021-03-23] MEDS ORDERED: LIDOCAINE 1% 2 ML VIAL MC ONE (06:31)
[2021-03-23] MEDS ORDERED: cefTRIAXone 1 GM VIAL IM STA (06:31)
[2021-03-23] MEDS ORDERED: IPRATROPIUM/ALBUTEROL 3 ML NEB INH STA (06:55)
[2021-03-23] MEDS ORDERED: LORazepam 2 MG/ML VIAL IVP STA (07:01)
[2021-03-23] MEDS ORDERED: DEXAMETHASONE 10 MG/ML VIAL IVP STA (07:06)
[2021-03-23] MEDS ORDERED: diphenhydrAMINE INJ 50 MG/ML VIAL IVP STA (07:06)
[2021-03-23] MEDS ORDERED: FUROSEMIDE 40 MG/4 ML VIAL IVP STA (07:06)
[2021-03-23] MEDS: NITROGLYCERIN 2% PASTE TOP STA (07:14)
[2021-03-23] MEDS ORDERED: LEVALBUTEROL 1.25 MG/3 ML NEB INH STA (07:30)
[2021-03-23] MEDS ORDERED: AZITHROMYCIN INJ 500 MG in SODIUM CHLORIDE 0.9% 250 ML IV STA (07:31)
[2021-03-23] MEDS ORDERED: ASPIRIN 325 MG TABLET PO STA (08:01)
--- NOTE | 2021-03-23 08:13 | XRAY Report ---
PROCEDURE: Chest 1 View X-Ray INDICATIONS: dyspnea TECHNIQUE: One view of the chest was acquired. COMPARISON: 03/23/2021 at 0101 hours FINDINGS: Surgical changes and devices: None. Lungs and pleura: Interval worsening of pulmonary status, with increasing interstitial and alveolar d ensity in the right lung and interstitial density in the left lung. Findings are consistent with eith er asymmetric pulmonary edema or right-sided pneumonia with superimposed pulmonary edema. Mediastinum: Mediastinal contours appear normal. Heart size is normal. Bones and chest wall: No suspicious bony lesions. Overlying soft tissues appear unremarkable. IMPRESSION: Interval worsening of pulmonary status consistent with either asymmetric pulmonary edema or right-marbella ed pneumonia with superimposed pulmonary edema. Reviewed by: Kenny Goncalves MD on 03/23/2021 8:12 AM PDT Approved by: Kenny Goncalves MD on 03/23/2021 8:12 AM PDT Station ID: [id number]
--- NOTE | 2021-03-23 09:49 | XRAY Report ---
PROCEDURE: Chest 1 View X-Ray INDICATIONS: Chest pain TECHNIQUE: One view of the chest was acquired. COMPARISON: FINDINGS: Surgical changes and devices: None. Lungs and pleura: No pleural effusions or pneumothorax. Lungs are abnormal, with asymmetric right g reater than left pneumonia pattern, without pleural thickening identified. Mediastinum: Mediastinal contours appear normal. Heart size is normal. Bones and chest wall: No suspicious bony lesions. Overlying soft tissues appear unremarkable. IMPRESSION: Moderately severe right and mild left pneumonia pattern, without pleural effusion or pleural thickeni ng. Reviewed by: Jt Beck MD on 03/23/2021 8:48 AM RIDGE Approved by: Jt Beck MD on 03/23/2021 8:48 AM RIDGE Station ID: [id number]
[2021-03-23 12:14] VITALS: BP 155/85
[2021-03-23] MEDS ORDERED: LORazepam 1 MG TABLET PO STA (12:24)
== END 2021-03-23 12:30 | disposition short-term general hospital (02) ==
LOC: EDUNIT# → EDBD → ED 00:57 → SUPCPDRO 00:57 → ED 12:30
DX: J18.9 Pneumonia, unspecified organism (principal); I12.0 Hypertensive chronic kidney disease with stage 5 chronic kidney disease or end stage renal disease; N18.6 End stage renal disease; I48.92 Unspecified atrial flutter; I45.10 Unspecified right bundle-branch block; Z20.822 Contact with and (suspected) exposure to COVID-19; F17.200 Nicotine dependence, unspecified, uncomplicated
CPT/HCPCS: 36415; 71045; 80053; 83605; 83690; 84484; 85025; 87040; 87631; 93005; 94640; 96365; 96372; 96375; 99284; 99285; A9270; J1200; J2060; J8499; 0202U; 85379

== ENCOUNTER 2021-03-23 12:33 | Outpatient (CLI) | payer MEDICARE, MEDICAID | END 2021-03-23 12:34 | disposition short-term general hospital (02) | LOC: EMS 12:33 | PROVIDERS: ATTEND Emergency Medicine | DX: R06.02 Shortness of breath (principal) | CPT/HCPCS: A0425; A0428 ==

== ENCOUNTER 2021-03-31 08:08 | Emergency (ER) | payer MEDICARE, MEDICAID ==
--- OUTSIDE RECORDS SUMMARY | 2021-03-31 08:11 | EXTERNAL MEDICAL SUMMARY RPT | Continuity of Care Document ---
:1965 Demographics Phone Unavailable Preferred Language Unknown Marital Status Unknown Yarsani Affiliation Unknown Race Unknown Ethnic Group Unknown Author Organization [facility] Address [address] [place] [address] Phone Allergies Encounters Medications Problems Results
--- OUTSIDE RECORDS SUMMARY | 2021-03-31 08:17 | EXTERNAL MEDICAL SUMMARY RPT | Continuity of Care Document ---
:1965 Demographics Phone Unavailable Preferred Language Unknown Marital Status Unknown Mandaen Affiliation Unknown Race Unknown Ethnic Group Unknown Author Organization [facility] Address [address] [place] [address] Phone Allergies Encounters Medications Problems Results
[2021-03-31] MEDS ORDERED: SODIUM CHLORIDE 0.9% 500 ML IV STA (08:39)
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
[2021-03-31 08:58] LABS: BASOPHILS # (AUTO) 0.1 10^3/uL (0.0-0.1); BASOPHILS % (AUTO) 0.8 %; EOSINOPHILS % (AUTO) 15.7 %; HCT - HEMATOCRIT 26.7 % (42.0-52.0); HGB - HEMOGLOBIN 8.5 g/dL (14.0-18.0); LYMPHOCYTES % (AUTO) 16.7 %; MEAN CORPUSCULAR HEMOGLOBIN 31.1 pg (27.0-31.0); MEAN CORPUSCULAR HGB CONC 31.8 g/dL (32.0-36.0); MEAN CORPUSCULAR VOLUME 97.8 fL (80.0-94.0); MEAN PLATELET VOLUME 9.1 fL (7.4-11.4); MONOCYTES # (AUTO) 0.7 10^3/uL (0.0-1.0); MONOCYTES % (AUTO) 10.8 %; NEUTROPHILS # (AUTO) 3.5 10^3/uL (1.5-6.6); NEUTROPHILS % (AUTO) 55.5 %; PLT - PLATELET COUNT 351 10^3/uL (130-450); RED BLOOD COUNT 2.73 10^6/uL (4.70-6.10); RED CELL DISTRIBUTION WIDTH 15.2 % (12.0-15.0); WHITE BLOOD COUNT 6.2 x10^3/uL (4.8-10.8)
[2021-03-31 09:09] LABS: ALBUMIN 3.4 g/dL (3.2-5.5); ALBUMIN/GLOBULIN RATIO 1.3 (1.0-2.2); BILIRUBIN,TOTAL 0.5 mg/dL (0.2-1.0); CALCIUM 8.3 mg/dL (8.5-10.3); CREATININE 5.1 mg/dL (0.6-1.2); POTASSIUM 4.2 mmol/L (3.5-5.0)
--- NOTE | 2021-03-31 09:17 | CT Report ---
PROCEDURE: HEAD WO INDICATIONS: fall, head injury TECHNIQUE: Noncontrast 4.5 mm thick angled axial sections acquired from the foramen magnum to the vertex. For r adiation dose reduction, the following was used: automated exposure control, adjustment of mA and/or kV according to patient size. COMPARISON: None. FINDINGS: Image quality: Motion artifact is noted. CSF spaces: Basal cisterns are patent. No extra-axial fluid collections. Ventricles are normal in size and shape. Brain: No midline shift. No intracranial masses or hemorrhage. Cardenas-white matter interface is norm al. Skull and face: Calvarium and visualized facial bones are intact, without suspicious lesions. Sinuses: Visualized sinuses and mastoids are clear. IMPRESSION: Limited study demonstrating no acute intracranial hemorrhage or other acute intracranial abnormality. Reviewed by: Gene Carranza MD on 03/31/2021 8:16 AM RIDGE Approved by: Gene Carranza MD on 03/31/2021 8:16 AM RIDGE Station ID: [id number]
[2021-03-31 09:31] VITALS: BP 121/65
== END 2021-03-31 09:42 | disposition home or self-care (01) ==
LOC: ED 08:08
DX: S09.90XA Unspecified injury of head, initial encounter (principal); W19.XXXA Unspecified fall, initial encounter; E86.0 Dehydration; R34 Anuria and oliguria; N28.9 Disorder of kidney and ureter, unspecified; Z99.2 Dependence on renal dialysis; F17.200 Nicotine dependence, unspecified, uncomplicated
CPT/HCPCS: 36415; 51798; 80053; 83690; 85025; 96360; 99284

== ENCOUNTER 2021-04-25 14:05 | Outpatient (CLI) | payer MEDICARE, MEDICAID ==
[2021-04-27 13:11] LABS: HEPATITIS B SURFACE ANTIGEN NON-REACTIVE (NON-REACTIVE)
== END 2021-04-25 14:06 | disposition home or self-care (01) ==
LOC: LAB.S 14:05
PROVIDERS: ATTEND Internal Medicine Nephrology
DX: N18.6 End stage renal disease (principal)
CPT/HCPCS: 86317; 86704; 87340

== ENCOUNTER 2021-04-26 13:47 | Outpatient (CLI) | payer MEDICARE, MEDICAID | END 2021-04-26 23:59 | disposition short-term general hospital (02) | LOC: EMS 13:47 | DX: R41.0 Disorientation, unspecified (principal); R00.2 Palpitations | CPT/HCPCS: A0425; A0429 ==

== ENCOUNTER 2021-04-30 08:47 | Outpatient (CLI) | payer MEDICARE, MEDICAID | END 2021-04-30 08:48 | disposition EMS.NT | LOC: EMS 08:47 | DX: F41.9 Anxiety disorder, unspecified (principal) ==

== ENCOUNTER 2021-05-02 04:34 | Outpatient (CLI) | payer MEDICARE, MEDICAID | END 2021-05-02 04:35 | disposition short-term general hospital (02) | LOC: EMS 04:34 | DX: R06.02 Shortness of breath (principal) | CPT/HCPCS: A0425; A0429 ==

== ENCOUNTER 2021-05-14 05:18 | Outpatient (CLI) | payer MEDICARE, MEDICAID | END 2021-05-14 05:19 | disposition critical access hospital (66) | LOC: EMS 05:18 | DX: R06.02 Shortness of breath (principal) | CPT/HCPCS: A0425; A0429 ==

== ENCOUNTER 2021-05-14 05:50 | Emergency (ER) | payer MEDICARE, MEDICAID ==
--- NOTE | 2021-05-14 06:09 | ED Physician Documentation ---
PD HPI DYSPNEA - Stated complaint Stated Complaint: SOA - Chief complaint Chief Complaint: Resp - History obtained from History obtained from: Patient - History of Present Illness Timing - onset: How many hours ago (3-4), Today Timing - onset during: Rest (He states he awoke from sleep with trouble breathing. Discontinued for a couple of hours so he called EMS. They suggested bringing him over to [facility] as he is a dialysis patient and was due for dialysis today. However the patient wanted to come to [facility].) Timing - duration: Hours Timing - details: Abrupt onset, Now resolved (He is feeling improved enroute with oxygen. Breathing easy on arrival here.) Inciting event(s): No: URI Improved by: O2 (by EMS enroute. They did not get oxygen sats prior to placing oxygen.) Associated symptoms: Wheezing. No: Fever, Cough, Chest pain / discomfort, Unilateral edema Similar symptoms before: No diagnosis (He states he was hospitalized for 5 days at [facility] with the symptoms in a similar episode. Treated with antibiotics and diagnosed with CHF versus pneumonia. Dialyzed three days in a row there, for treatment of likely CHF.) Recently seen: Emergency Dept, Admitted ([facility] last week. Therapy post discharge of incentive spirometry and acapella.) Review of Systems Constitutional: denies: Fever, Chills, Myalgias Nose: denies: Rhinorrhea / runny nose, Congestion Throat: denies: Sore throat Cardiac: denies: Chest pain / pressure, Palpitations, Pedal edema Respiratory: reports: Dyspnea, Wheezing. denies: Cough GI: denies: Nausea, Vomiting, Diarrhea, Bloody / black stool Neurologic: denies: Altered mental status, Headache PD PAST MEDICAL HISTORY - Past Medical History Cardiovascular: Hypertension, Arrhythmia Respiratory: None Neuro: Peripheral neuropathy, Seizure disorder Endocrine/Autoimmune: None GI: None : Dialysis, Renal insuffiency HEENT: None Musculoskeletal: Osteoarthritis, Gout Derm: Eczema, Psoriasis - Past Surgical History Past Surgical History: Yes General: Gastric surgery, Other Ortho: Amputation - Present Medications Home Medications: Ambulatory Orders Medication Instructions Recorded Confirmed Amlodipine Besylate [Norvasc] 10 mg PO DAILY 03/23/21 05/14/21 Cyclobenzaprine HCl 5 mg PO BID 03/23/21 05/14/21 Furosemide [Lasix] 80 mg PO DAILY 03/23/21 05/14/21 LORazepam [Ativan] 0.5 - 1 mg PO Q6H 03/23/21 05/14/21 Metoprolol Tartrate [Lopressor] 50 mg PO DAILY 03/23/21 05/14/21 Zolpidem [Ambien] 5 mg ORAL QPM PRN 03/23/21 05/14/21 oxyCODONE [Roxicodone] 10 mg PO Q3HR PRN 03/23/21 05/14/21 Albuterol Sulf [Ventolin Hfa 2 - 3 puffs INH Q4HR PRN #1 inhaler 05/14/21 Inhaler] - Allergies Allergies/Adverse Reactions: Allergies Allergy/AdvReac Type Severity Reaction Status Date / Time gabapentin Allergy Unknown Verified 03/31/21 08:16 Penicillins Allergy Unknown Verified 03/31/21 08:16 povidone-iodine Allergy Unknown Verified 03/31/21 08:16 [From Betadine] prednisone Allergy Nausea Verified 03/31/21 08:16 soap [From Betadine] Allergy Unknown Verified 03/31/21 08:16 - Social History Does the pt smoke?: Yes Smoking Status: Current every day smoker Does the pt drink ETOH?: Yes Does the pt have substance abuse?: Yes - Immunizations Immunizations are current?: Yes - POLST Patient has POLST: No PD ED PE NORMAL - Vitals Vital signs reviewed: Yes (sats 96-100% room air on arrival here.) - General General: Alert and oriented X 3, No acute distress, Well developed/nourished - HEENT HEENT: Pharynx benign - Neck Neck: Supple, no meningeal sign, No adenopathy - Cardiac Cardiac: RRR, No murmur - Respiratory Respiratory: No: Clear bilaterally (some scattered wheezing. Fine crackles right base in particular. ) - Abdomen Abdomen: Soft, Non tender - Back Back: No CVA TTP - Derm Derm: Normal color, Warm and dry - Extremities Extremities: Other (prior leg amputation noted. No edema in remaining leg. ) - Neuro Neuro: Alert and oriented X 3, No motor deficit, Normal speech Results - Vitals Vitals: Vital Signs - 24 hr 05/14/21 05/14/21 05/14/21 05:57 06:02 06:52 Temperature 97.8 C H Heart Rate 86 84 82 Respiratory 18 18 27 H Rate Blood Pressure 196/90 H 193/93 H 195/88 H O2 Saturation 100 100 94 Oxygen O2 Source Room air - Labs Labs: Laboratory Tests 05/14/21 05/14/21 05/14/21 06:25 06:25 06:25 WBC 12.5 H RBC 2.86 L Hgb 8.7 L Hct 27.0 L MCV 94.4 H MCH 30.4 MCHC 32.2 RDW 14.9 Plt Count 310 MPV 8.8 Neut # (Auto) 10.0 H Lymph # (Auto) 0.9 L [place] # (Auto) 0.6 Eos # (Auto) 0.8 H Baso # (Auto) 0.2 H Absolute Nucleated RBC 0.00 Nucleated RBC % 0.0 D-Dimer Sodium 137 Potassium 4.3 Chloride 102 Carbon Dioxide 24 Anion Gap 11.0 BUN 65 H Creatinine 8.1 H* Estimated GFR (MDRD) 7 L Glucose 107 H Calcium 8.7 B-Natriuretic Peptide 3788 H 05/14/21 06:25 WBC RBC Hgb Hct MCV MCH MCHC RDW Plt Count MPV Neut # (Auto) Lymph # (Auto) [place] # (Auto) Eos # (Auto) Baso # (Auto) Absolute Nucleated RBC Nucleated RBC % D-Dimer 535.0 H Sodium Potassium Chloride Carbon Dioxide Anion Gap BUN Creatinine Estimated GFR (MDRD) Glucose Calcium B-Natriuretic Peptide - Rads (name of study) chest xray Radiology: Prelim report reviewed (right lower field fluid congestion, CHF vs infiltrate, improved from 03/20/21.), See rad report PD MEDICAL DECISION MAKING - ED course Complexity details: reviewed results (right lower fluid improved from 03/20/21, pneumonia vs CHF. ), re-evaluated patient (he is doing okay with unlabored breathing and good sats RA. Consider reactive airway. Considered PE and was going to get CT but patient declined IV and says they got CT in [facility] that was negative (did show fluid in lungs though). Can add MDI to his meds. I think it important for his dialysis today), considered differential (will try to get discharge summary from [facility]. Sounds like their treatment targeted at improved airflow with incentive spirometer and acapella. Did get abx and increased dialysis in hospital, per patient. ), d/w patient Departure - Departure Clinical Impression: Dyspnea Qualifiers: Dyspnea type: shortness of breath Qualified Code(s): R06.02 - Shortness of breath; R06.00 - Dyspnea, unspecified; R06.01 - Orthopnea CHF (congestive heart failure) Qualifiers: Heart failure type: unspecified Heart failure chronicity: acute on chronic Qualified Code(s): I50.9 - Heart failure, unspecified Renal failure Qualifiers: Renal failure chronicity: chronic Chronic kidney disease stage: on chronic dialysis Qualified Code(s): N18.6 - End stage renal disease; Z99.2 - Dependence on renal dialysis Condition: Stable Record reviewed to determine appropriate education?: Yes Instructions: ED Dyspnea Shortness of Breath Follow-Up: DELANEY OBRIEN [Primary Care Provider] - Prescriptions: Albuterol Sulf [Ventolin Hfa Inhaler] 2 - 3 puffs INH Q4HR PRN #1 inhaler PRN Reason: Shortness Of Air/Wheezing Comments: Continue with usual medications. Get dialysis today as scheduled. Add an albuterol inhaler 2 to 3 puffs 4 times a day for the next couple of weeks and see overall how well you are doing. Follow-up with your primary care. Return to the ER if worsened.
[2021-05-14 06:36] LABS: BASOPHILS # (AUTO) 0.2 10^3/uL (0.0-0.1); BASOPHILS % (AUTO) 1.3 %; EOSINOPHILS # (AUTO) 0.8 10^3/uL (0.0-0.7); EOSINOPHILS % (AUTO) 6.3 %; HGB - HEMOGLOBIN 8.7 g/dL (14.0-18.0); LYMPHOCYTES # (AUTO) 0.9 10^3/uL (1.5-3.5); LYMPHOCYTES % (AUTO) 7.5 %; MEAN CORPUSCULAR HEMOGLOBIN 30.4 pg (27.0-31.0); MEAN CORPUSCULAR HGB CONC 32.2 g/dL (32.0-36.0); MEAN CORPUSCULAR VOLUME 94.4 fL (80.0-94.0); MEAN PLATELET VOLUME 8.8 fL (7.4-11.4); MONOCYTES # (AUTO) 0.6 10^3/uL (0.0-1.0); MONOCYTES % (AUTO) 4.5 %; PLT - PLATELET COUNT 310 10^3/uL (130-450); RED BLOOD COUNT 2.86 10^6/uL (4.70-6.10); RED CELL DISTRIBUTION WIDTH 14.9 % (12.0-15.0); WHITE BLOOD COUNT 12.5 x10^3/uL (4.8-10.8)
[2021-05-14 06:43] LABS: CALCIUM 8.7 mg/dL (8.5-10.3); POTASSIUM 4.3 mmol/L (3.5-5.0)
[2021-05-14 06:47] LABS: CREATININE 8.1 mg/dL (0.6-1.2)
[2021-05-14] MEDS ORDERED: ALBUTEROL NEB 2.5 MG/3 ML INH STA (08:02)
--- NOTE | 2021-05-14 08:11 | XRAY Report ---
PROCEDURE: Chest 1 View X-Ray INDICATIONS: Chest pain TECHNIQUE: One view of the chest was acquired. COMPARISON: 03/23/2021 FINDINGS: Slight improvement in airspace disease in the right lung when compared with 03/23/2021 exam. Improvemen t is predominantly in the upper portion of the right lung. The dense consolidation at the right lung base with an adjacent pleural effusion is similar. Interstitial opacities in the left lung are simila r to the prior study. No definite pleural effusion on the left. Heart size is within normal limits. IMPRESSION: Overall mild improvement in airspace disease in the right lung. Residual consolidative airspace disease is predominantly within the right lung base, with an adjacent right pleural effusion. No significant change from preliminary report. Reviewed by: Pilo Harris MD on 05/14/2021 8:10 AM PDT Approved by: Pilo Harris MD on 05/14/2021 8:10 AM PDT Station ID: [id number]
[2021-05-14 08:36] VITALS: BP 179/79
== END 2021-05-14 08:34 | disposition home or self-care (01) ==
LOC: ED 05:50
DX: I13.2 Hypertensive heart and chronic kidney disease with heart failure and with stage 5 chronic kidney disease, or end stage renal disease (principal); I50.9 Heart failure, unspecified; N18.6 End stage renal disease; Z99.2 Dependence on renal dialysis; F17.200 Nicotine dependence, unspecified, uncomplicated
CPT/HCPCS: 36415; 80048; 83880; 85025; 85379; 93005; 94640; 99284

== ENCOUNTER 2021-05-20 15:45 | Outpatient (CLI) | payer MEDICARE, MEDICAID | END 2021-05-20 15:46 | disposition critical access hospital (66) | LOC: EMS 15:45 | DX: R04.2 Hemoptysis (principal); R06.02 Shortness of breath | CPT/HCPCS: A0425; A0429 ==

== ENCOUNTER 2021-05-20 16:23 | Emergency (ER) | payer MEDICARE, MEDICAID ==
[2021-05-20 16:49] LABS: BASOPHILS # (AUTO) 0.1 10^3/uL (0.0-0.1); EOSINOPHILS # (AUTO) 0.5 10^3/uL (0.0-0.7); EOSINOPHILS % (AUTO) 5.1 %; HCT - HEMATOCRIT 24.4 % (42.0-52.0); HGB - HEMOGLOBIN 7.8 g/dL (14.0-18.0); LYMPHOCYTES # (AUTO) 0.8 10^3/uL (1.5-3.5); LYMPHOCYTES % (AUTO) 7.9 %; MEAN CORPUSCULAR HEMOGLOBIN 30.5 pg (27.0-31.0); MEAN CORPUSCULAR VOLUME 95.3 fL (80.0-94.0); MEAN PLATELET VOLUME 8.9 fL (7.4-11.4); MONOCYTES # (AUTO) 0.7 10^3/uL (0.0-1.0); NEUTROPHILS # (AUTO) 7.6 10^3/uL (1.5-6.6); NEUTROPHILS % (AUTO) 78.7 %; PLT - PLATELET COUNT 285 10^3/uL (130-450); RED BLOOD COUNT 2.56 10^6/uL (4.70-6.10); RED CELL DISTRIBUTION WIDTH 15.6 % (12.0-15.0); WHITE BLOOD COUNT 9.7 x10^3/uL (4.8-10.8)
[2021-05-20 16:54] LABS: INR 1.4 (0.8-1.2); PT - PROTHROMBIN TIME 15.1 secs (9.9-12.6)
[2021-05-20 17:04] LABS: CALCIUM 8.9 mg/dL (8.5-10.3); POTASSIUM 4.5 mmol/L (3.5-5.0)
[2021-05-20] MEDS ORDERED: IPRATROPIUM/ALBUTEROL 3 ML NEB INH STA (17:04)
[2021-05-20 17:06] LABS: CREATININE 7.3 mg/dL (0.6-1.2)
--- NOTE | 2021-05-20 17:08 | ED Physician Documentation ---
History of Present Illness - Stated complaint Stated Complaint: SOA/W COUGH - Chief complaint Chief Complaint: Resp - History obtained from History obtained from: Patient - History of Present Illness Timing: Other (2 months) Pain level max: 0 Pain level now: 0 - Additonal information Additional information: 55-year-old male, dialysis patient, presents to the emergency department with dyspnea and coughing for the past 2 months. He states he has been treated for possible pneumonia, also treated for possible fluid overload with dialysis. He does not have any fevers that he is aware of. He does have an albuterol inhaler that he received at his last visit, uses it 2-3 times per day, does not use a spacer with it. Has had his Covid vaccinations. He is due for dialysis tomorrow. Does not use oxygen at home. Nothing makes it better or worse. Review of Systems Ten Systems: 10 systems reviewed and negative Constitutional: denies: Fever, Chills Ears: denies: Ear pain Nose: denies: Rhinorrhea / runny nose, Congestion Throat: denies: Sore throat Respiratory: denies: Cough GI: denies: Nausea, Vomiting, Diarrhea PD PAST MEDICAL HISTORY - Past Medical History Cardiovascular: Hypertension, Arrhythmia Respiratory: None Neuro: Peripheral neuropathy, Seizure disorder Endocrine/Autoimmune: None GI: None : Dialysis, Renal insuffiency HEENT: None Musculoskeletal: Osteoarthritis, Gout Derm: Eczema, Psoriasis - Past Surgical History Past Surgical History: Yes General: Gastric surgery, Other Ortho: Amputation - Present Medications Home Medications: Ambulatory Orders Medication Instructions Recorded Confirmed Amlodipine Besylate [Norvasc] 10 mg PO DAILY 03/23/21 05/20/21 Cyclobenzaprine HCl 5 mg PO BID 03/23/21 05/20/21 Furosemide [Lasix] 80 mg PO DAILY 03/23/21 05/20/21 LORazepam [Ativan] 0.5 - 1 mg PO Q6H 03/23/21 05/20/21 Metoprolol Tartrate [Lopressor] 50 mg PO DAILY 03/23/21 05/20/21 Zolpidem [Ambien] 5 mg ORAL QPM PRN 03/23/21 05/20/21 oxyCODONE [Roxicodone] 10 mg PO Q3HR PRN 03/23/21 05/20/21 Albuterol Sulf [Ventolin Hfa 2 - 3 puffs INH Q4HR PRN #1 inhaler 05/14/21 05/20/21 Inhaler] - Allergies Allergies/Adverse Reactions: Allergies Allergy/AdvReac Type Severity Reaction Status Date / Time ceftriaxone Allergy Respiratory Verified 05/20/21 21:18 gabapentin Allergy Unknown Verified 05/20/21 16:32 Penicillins Allergy Unknown Verified 05/20/21 16:32 povidone-iodine Allergy Unknown Verified 05/20/21 16:32 [From Betadine] prednisone Allergy Nausea Verified 05/20/21 16:32 soap [From Betadine] Allergy Unknown Verified 05/20/21 16:32 - Social History Does the pt smoke?: Yes Smoking Status: Current every day smoker Does the pt drink ETOH?: Yes Does the pt have substance abuse?: Yes - Immunizations Immunizations are current?: Yes - POLST Patient has POLST: No PD ED PE NORMAL - Vitals Vital signs reviewed: Yes - General General: Alert and oriented X 3, No acute distress - HEENT HEENT: Moist mucous membranes - Neck Neck: Supple, no meningeal sign - Cardiac Cardiac: RRR - Respiratory Respiratory: No respiratory distress, Other (Mild rhonchi bilaterally) - Abdomen Abdomen: Soft, Non tender, Non distended - Derm Derm: Warm and dry - Neuro Neuro: Alert and oriented X 3 Results - Vitals Vitals: Vital Signs - 24 hr 05/20/21 05/20/21 05/20/21 16:24 17:24 18:56 Temperature 36.8 C Heart Rate 89 100 90 Respiratory 13 16 18 Rate Blood Pressure 165/88 H 169/94 H O2 Saturation 85 L 92 05/20/21 05/20/21 19:26 20:00 Temperature 36.8 C Heart Rate 89 89 Respiratory 20 15 Rate Blood Pressure 175/91 H O2 Saturation 99 Oxygen O2 Source Nasal cannula Oxygen Flow Rate 2 - EKG (time done) 1715 Rate: Rate (enter#) (83) Rhythm: NSR Munger: Anterior hemiblock (LAFB) Intervals: Normal [place] QRS: Normal Ischemia: Normal ST segments, Q waves (V1-3, aVF) - Labs Labs: Laboratory Tests 05/20/21 05/20/21 05/20/21 16:43 16:43 16:43 WBC 9.7 RBC 2.56 L Hgb 7.8 L Hct 24.4 L MCV 95.3 H MCH 30.5 MCHC 32.0 RDW 15.6 H Plt Count 285 MPV 8.9 Neut # (Auto) 7.6 H Lymph # (Auto) 0.8 L [place] # (Auto) 0.7 Eos # (Auto) 0.5 Baso # (Auto) 0.1 Absolute Nucleated RBC 0.00 Nucleated RBC % 0.0 PT 15.1 H INR 1.4 H Sodium 132 L Potassium 4.5 Chloride 93 L Carbon Dioxide 27 Anion Gap 12.0 BUN 51 H Creatinine 7.3 H* Estimated GFR (MDRD) 8 L Glucose 113 H Calcium 8.9 Nasal Adenovirus (PCR) Nasal B. parapertussis DNA (PCR) Nasal Coronavir 229E PCR Nasal Coronavir HKU1 PCR Nasal Coronavir NL63 PCR Nasal Coronavir OC43 PCR Nasal Enterovir/Rhinovir PCR Nasal Influenza B PCR Nasal Influenza A PCR Nasal Parainfluen 1 PCR Nasal Parainfluen 2 PCR Nasal Parainfluen 3 PCR Nasal Parainfluen 4 PCR Nasal RSV (PCR) Nasal B.pertussis DNA PCR Nasal C.pneumoniae (PCR) Mario Human Metapneumo PCR Nasal M.pneumoniae (PCR) Nasal SARS-CoV-2 (PCR) 05/20/21 17:09 WBC RBC Hgb Hct MCV MCH MCHC RDW Plt Count MPV Neut # (Auto) Lymph # (Auto) [place] # (Auto) Eos # (Auto) Baso # (Auto) Absolute Nucleated RBC Nucleated RBC % PT INR Sodium Potassium Chloride Carbon Dioxide Anion Gap BUN Creatinine Estimated GFR (MDRD) Glucose Calcium Nasal Adenovirus (PCR) NOT DETECTED Nasal B. parapertussis DNA (PCR) NOT DETECTED Nasal Coronavir 229E PCR NOT DETECTED Nasal Coronavir HKU1 PCR NOT DETECTED Nasal Coronavir NL63 PCR NOT DETECTED Nasal Coronavir OC43 PCR NOT DETECTED Nasal Enterovir/Rhinovir PCR NOT DETECTED Nasal Influenza B PCR NOT DETECTED Nasal Influenza A PCR NOT DETECTED Nasal Parainfluen 1 PCR NOT DETECTED Nasal Parainfluen 2 PCR NOT DETECTED Nasal Parainfluen 3 PCR NOT DETECTED Nasal Parainfluen 4 PCR NOT DETECTED Nasal RSV (PCR) NOT DETECTED Nasal B.pertussis DNA PCR NOT DETECTED Nasal C.pneumoniae (PCR) NOT DETECTED Mario Human Metapneumo PCR NOT DETECTED Nasal M.pneumoniae (PCR) NOT DETECTED Nasal SARS-CoV-2 (PCR) NOT DETECTED - Rads (name of study) cxr Radiology: Final report received, EMP read contemporaneously, See rad report PD MEDICAL DECISION MAKING - ED course Complexity details: reviewed results, re-evaluated patient, considered differential, d/w patient ED course: 55-year-old male, dialysis patient, presents to the emergency department with increasing shortness of breath. He is found to be hypoxic. Has improving right mid and lower lung pneumonia, but there is superimposed chronic interstitial lung disease. There may be a small subpulmonic right effusion. Patient was given multiple breathing treatments, IV antibiotics. Changed to Levaquin. He still is hypoxic, 84 to 85% on room air. We cannot keep dialysis patients here, therefore he will need to be transferred. At this time there are no beds at [facility], [facility], [facility] [place] or [facility]. He is placed on the wait list. There may be beds later tonight or tomorrow. Patient will be signed out to the oncoming emergency department physician for continued care. If his hypoxia happens to improve, he could potentially be discharged for his normal dialysis tomorrow at 1 PM. Improving right mid and lower lung pneumonia that had been superimposed on chronic interstitial lung disease in this patient. As noted there is a small subpulmonic right effusion but not on the left. Departure - Departure Disposition: 02 Transfer Acute Care Hosp Clinical Impression: Hypoxia Pneumonia Qualifiers: Pneumonia type: due to unspecified organism Laterality: bilateral Lung location: lower lobe of lung Qualified Code(s): J18.9 - Pneumonia, unspecified organism Condition: Stable
--- NOTE | 2021-05-20 17:27 | XRAY Report ---
PROCEDURE: Chest 1 View X-Ray INDICATIONS: dyspnea TECHNIQUE: One view of the chest was acquired. COMPARISON: Prior chest single view 03/23/2021 and 05/14/2021. FINDINGS: Surgical changes and devices: None. Lungs and pleura: No pleural effusions or pneumothorax. Lungs are abnormal with chronic lung diseas e and a chronic interstitial prominence but the dense pneumonia through the right mid and lower lung has significantly improved. There is likely a small subpulmonic right pleural effusion, and no defini te left effusion is seen.. Mediastinum: Mediastinal contours appear normal. Heart size is normal. Bones and chest wall: No suspicious bony lesions. Overlying soft tissues appear unremarkable. IMPRESSION: Improving right mid and lower lung pneumonia that had been superimposed on chronic interstitial lung disease in this patient. As noted there is a small subpulmonic right effusion but not on the left. Reviewed by: Jt Beck MD on 05/20/2021 5:26 PM PDT Approved by: Jt Beck MD on 05/20/2021 5:26 PM PDT Station ID: [id number]
[2021-05-20 18:20] LABS: B. PARAPERTUSSIS- RESP PCR PAN NOT DETECTED; B. PERTUSSIS- RESP PCR PANEL NOT DETECTED; C. PNEUMONIAE- RESP PCR PANEL NOT DETECTED; CORONAVIRUS 229E-RESP PCR NOT DETECTED; CORONAVIRUS HKU1-RESP PCR NOT DETECTED; CORONAVIRUS NL63-RESP PCR NOT DETECTED; CORONAVIRUS OC43-RESP PCR NOT DETECTED; HUMAN METAPNEUMOVIRUS NOT DETECTED; INFLUENZA A- RESP PCR PANEL NOT DETECTED; INFLUENZA B - RESP PCR PANEL NOT DETECTED; M. PNEUMONIAE- RESP PCR PANEL NOT DETECTED; PARAINFLUENZA VIRUS 1 NOT DETECTED; PARAINFLUENZA VIRUS 2 NOT DETECTED; PARAINFLUENZA VIRUS 3 NOT DETECTED; PARAINFLUENZA VIRUS 4 NOT DETECTED; RHINOVIRUS/ENTEROVIRUS NOT DETECTED; RSV- RESP PCR PANEL NOT DETECTED; SARS-CoV-2 -RESP PCR PANEL NOT DETECTED
[2021-05-20] MEDS ORDERED: FUROSEMIDE 40 MG/4 ML VIAL IVP STA (18:40)
[2021-05-20] MEDS ORDERED: ALBUTEROL NEB 2.5 MG/3 ML INH STA (18:40)
[2021-05-20] MEDS ORDERED: AZITHROMYCIN INJ 500 MG in SODIUM CHLORIDE 0.9% 250 ML IV STA (20:46)
[2021-05-20] MEDS: cefTRIAXone 1 GM VIAL IVP STA ×2 (21:08→21:27)
[2021-05-20] MEDS ORDERED: levoFLOXacin 750 MG/150 ML 750 MG/150 ML BAG IV STA (21:17)
[2021-05-20] MEDS ORDERED: oxyCODONE 5 MG TABLET PO STA (22:57)
[2021-05-20] MEDS ORDERED: LORazepam 0.5 MG TABLET PO STA (22:57)
[2021-05-21] MEDS ORDERED: ALBUTEROL NEB 2.5 MG/3 ML INH PRN (01:56)
--- NOTE | 2021-05-21 07:04 | ED Physician Documentation ---
ED Addendum - Addendum Addendum: 05/21/21 07:03 Patient still requiring oxygen overnight. endorsed to Dr. Briceño, incoming daytime MD.
[2021-05-21] MEDS ORDERED: LORazepam 0.5 MG TABLET PO STA (08:59)
[2021-05-21] MEDS ORDERED: METOPROLOL TARTRATE 50 MG TABLET PO STA (08:59)
[2021-05-21] MEDS ORDERED: oxyCODONE 5 MG TABLET PO STA (08:59)
[2021-05-21] MEDS ORDERED: FUROSEMIDE 20 MG TABLET PO STA (12:38)
[2021-05-21] MEDS ORDERED: amLODIPine 5 MG TABLET PO STA (12:38)
[2021-05-21 14:39] VITALS: BP 138/89
== END 2021-05-21 13:05 | disposition home or self-care (01) ==
LOC: EDUNIT# → ED 16:23
DX: J18.9 Pneumonia, unspecified organism (principal); R09.02 Hypoxemia; J84.9 Interstitial pulmonary disease, unspecified; F17.200 Nicotine dependence, unspecified, uncomplicated; Z20.822 Contact with and (suspected) exposure to COVID-19; N28.9 Disorder of kidney and ureter, unspecified; Z99.2 Dependence on renal dialysis; I10 Essential (primary) hypertension; I44.4 Left anterior fascicular block; F41.9 Anxiety disorder, unspecified
CPT/HCPCS: 36415; 71045; 80048; 85025; 85610; 87631; 93005; 94640; 94664; 96365; 96366; 96367; 96375; 99284; 99285; A9270; 0202U

== ENCOUNTER 2021-06-25 09:30 | Outpatient (CLI) | payer MEDICARE, MEDICAID | END 2021-06-25 09:31 | disposition short-term general hospital (02) | LOC: EMS 09:30 | DX: R06.00 Dyspnea, unspecified (principal); R05 Cough; Z99.2 Dependence on renal dialysis | CPT/HCPCS: A0425; A0429 ==

== ENCOUNTER 2021-07-04 18:36 | Emergency (ER) | payer MEDICARE, MEDICAID ==
[2021-07-04 19:53] LABS: BASOPHILS # (AUTO) 0.1 10^3/uL (0.0-0.1); BASOPHILS % (AUTO) 0.9 %; EOSINOPHILS # (AUTO) 0.7 10^3/uL (0.0-0.7); EOSINOPHILS % (AUTO) 6.6 %; HCT - HEMATOCRIT 27.4 % (42.0-52.0); HGB - HEMOGLOBIN 8.8 g/dL (14.0-18.0); LYMPHOCYTES # (AUTO) 0.4 10^3/uL (1.5-3.5); LYMPHOCYTES % (AUTO) 3.8 %; MEAN CORPUSCULAR HEMOGLOBIN 30.9 pg (27.0-31.0); MEAN CORPUSCULAR HGB CONC 32.1 g/dL (32.0-36.0); MEAN CORPUSCULAR VOLUME 96.1 fL (80.0-94.0); MEAN PLATELET VOLUME 8.8 fL (7.4-11.4); MONOCYTES # (AUTO) 0.7 10^3/uL (0.0-1.0); MONOCYTES % (AUTO) 6.6 %; NEUTROPHILS % (AUTO) 81.7 %; PLT - PLATELET COUNT 456 10^3/uL (130-450); RED BLOOD COUNT 2.85 10^6/uL (4.70-6.10); RED CELL DISTRIBUTION WIDTH 15.5 % (12.0-15.0)
[2021-07-04 20:05] LABS: CALCIUM 8.9 mg/dL (8.5-10.3); CREATININE 3.2 mg/dL (0.6-1.2); POTASSIUM 4.4 mmol/L (3.5-5.0)
[2021-07-04] MEDS ORDERED: LORazepam 1 MG TABLET PO STA (20:32)
--- NOTE | 2021-07-04 20:35 | ED Physician Documentation ---
History of Present Illness - Stated complaint Stated Complaint: POST DIALISIS WOOZY - Chief complaint Chief Complaint: General - History obtained from History obtained from: Patient - Additonal information Additional information: Patient is brought to the emergency department for chief complaint of anxiety and shortness of breath that started during dialysis. Patient states that he has a history of severe anxiety as well as pulmonary edema, and states that his pulmonary edema seems to have been brought on in the past by his blood pressure being high. Patient states that during dialysis, his pressures began to go up and that he could hear the nurses calling off his blood pressure to 1 another. He states that made him feel anxious and he also began to wonder if his pulmonary edema was building up. He states this was probably around roughly 14- 15 100 this afternoon. Patient states that he is on either Ativan or alprazolam at homehe is not surebut that he did not go home between dialysis and coming here, so he did not have any opportunity to take his medications. Patient denies chest pain. He feels a little nauseated but this is only slight. No fever or cough. No other complaints at this time. Review of Systems Ten Systems: 10 systems reviewed and negative Constitutional: reports: Reviewed and negative. denies: Fever Eyes: reports: Reviewed and negative Ears: reports: Reviewed and negative Nose: reports: Reviewed and negative Throat: reports: Reviewed and negative Cardiac: reports: Reviewed and negative Respiratory: reports: Dyspnea. denies: Cough GI: reports: Reviewed and negative : reports: Reviewed and negative Skin: reports: Reviewed and negative Musculoskeletal: reports: Reviewed and negative Neurologic: reports: Reviewed and negative Psychiatric: reports: Reviewed and negative Endocrine: reports: Reviewed and negative Immunocompromised: reports: Reviewed and negative PD PAST MEDICAL HISTORY - Past Medical History Cardiovascular: Hypertension, Arrhythmia Respiratory: None Neuro: Peripheral neuropathy, Seizure disorder Endocrine/Autoimmune: None GI: None : Dialysis, Renal insuffiency HEENT: None Musculoskeletal: Osteoarthritis, Gout Derm: Eczema, Psoriasis - Past Surgical History Past Surgical History: Yes General: Gastric surgery, Other Ortho: Amputation - Present Medications Home Medications: Ambulatory Orders Medication Instructions Recorded Confirmed Amlodipine Besylate [Norvasc] 10 mg PO DAILY 03/23/21 05/20/21 Cyclobenzaprine HCl 5 mg PO BID 03/23/21 05/20/21 Furosemide [Lasix] 80 mg PO DAILY 03/23/21 05/20/21 LORazepam [Ativan] 0.5 - 1 mg PO Q6H 03/23/21 05/20/21 Metoprolol Tartrate [Lopressor] 50 mg PO DAILY 03/23/21 05/20/21 Zolpidem [Ambien] 5 mg ORAL QPM PRN 03/23/21 05/20/21 oxyCODONE [Roxicodone] 10 mg PO Q3HR PRN 03/23/21 05/20/21 Albuterol Sulf [Ventolin Hfa 2 - 3 puffs INH Q4HR PRN #1 inhaler 05/14/21 05/20/21 Inhaler] Ipratropium/Albuterol [Combivent 4 gm IH Q4HR #1 inhaler 05/21/21 Respimat] levoFLOXacin [Levaquin] 250 mg PO QD #7 tablet 05/21/21 - Allergies Allergies/Adverse Reactions: Allergies Allergy/AdvReac Type Severity Reaction Status Date / Time ceftriaxone Allergy Respiratory Verified 07/04/21 18:43 gabapentin Allergy Unknown Verified 07/04/21 18:43 Penicillins Allergy Unknown Verified 07/04/21 18:43 povidone-iodine Allergy Unknown Verified 07/04/21 18:43 [From Betadine] prednisone Allergy Nausea Verified 07/04/21 18:43 soap [From Betadine] Allergy Unknown Verified 07/04/21 18:43 - Social History Does the pt smoke?: Yes Smoking Status: Current every day smoker Does the pt drink ETOH?: Yes Does the pt have substance abuse?: Yes - Immunizations Immunizations are current?: Yes - POLST Patient has POLST: No PD ED PE NORMAL - Vitals Vital signs reviewed: Yes - General General: Alert and oriented X 3, No acute distress, Well developed/nourished - HEENT HEENT: Atraumatic, PERRL, EOMI, Moist mucous membranes - Neck Neck: Supple, no meningeal sign - Cardiac Cardiac: RRR, No murmur - Respiratory Respiratory: No respiratory distress, Clear bilaterally - Abdomen Abdomen: Soft, Non tender, Non distended - Derm Derm: Normal color, Warm and dry, No rash - Extremities Extremities: No deformity, No edema, Other (Left AKA ) - Neuro Neuro: Alert and oriented X 3, 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, Normal speech - Psych Psych: Normal mood, Normal affect Results - Vitals Vitals: Vital Signs - 24 hr 07/04/21 07/04/21 07/04/21 18:43 18:50 21:04 Temperature 36.9 C 36.9 C Heart Rate 95 95 79 Respiratory 16 16 14 Rate Blood Pressure 195/90 H 195/90 H 169/83 H O2 Saturation 98 98 98 Oxygen O2 Source Room air - Labs Labs: Laboratory Tests 07/04/21 07/04/21 19:47 19:47 WBC 11.0 H RBC 2.85 L Hgb 8.8 L Hct 27.4 L MCV 96.1 H MCH 30.9 MCHC 32.1 RDW 15.5 H Plt Count 456 H MPV 8.8 Neut # (Auto) 9.0 H Lymph # (Auto) 0.4 L [place] # (Auto) 0.7 Eos # (Auto) 0.7 Baso # (Auto) 0.1 Absolute Nucleated RBC 0.00 Nucleated RBC % 0.0 Sodium 129 L Potassium 4.4 Chloride 88 L Carbon Dioxide 31 Anion Gap 10.0 BUN 18 Creatinine 3.2 H Estimated GFR (MDRD) 20 L Glucose 126 H Calcium 8.9 - Rads (name of study) chest XR Radiology: Final report received, EMP read indepedently, See rad report (nad) PD MEDICAL DECISION MAKING - ED course Complexity details: reviewed results, re-evaluated patient, considered differential, d/w patient ED course: Patient was worked up with laboratory studies, which showed the patient was at baseline in most of her regard. He was treated with a dose of Ativan. Chest x- ray was performed and negative for acute pathology, specifically pulmonary edema. The patient overall looked fairly good, with comfortable respirations and room air oxygen saturation 98%. His heart rate was normal. Blood pressure was elevated at 195/90 just prior to my evaluation. Patient is stable for discharge home. I have advised him to follow-up with his doctors regarding both his anxiety and his hypertension. He should continue dialysis as usual. Departure - Departure Disposition: 01 Home, Self Care Clinical Impression: Anxiety, Shortness of breath Hypertension Qualifiers: Hypertension type: unspecified Qualified Code(s): I10 - Essential (primary) hypertension Condition: Stable Instructions: ED HTN Established, ED Panic Attack Comments: Your labs show that most of your values are at baseline. There are no concerning abnormalities that are acute in nature. Your chest x-ray actually is quite clear and does not show any evidence of edema. This is not surprising since you were just dialyzed. It is important that you continue to follow-up with your regular doctors regarding both your kidneys and your blood pressure. It is not uncommon for people with kidney failure to have hypertension as well, and you should talk to your doctor about the best management for this. Please continue with your dialysis schedule as usual and you may take your antianxiety medication as needed. Discharge Date/Time: 07/04/21 21:17
[2021-07-04 21:04] VITALS: BP 169/83
--- NOTE | 2021-07-04 21:40 | XRAY Report ---
PROCEDURE: Chest 1 View X-Ray INDICATIONS: chest pain TECHNIQUE: One view of the chest was acquired. COMPARISON: 05/20/2021 FINDINGS: Surgical changes and devices: None. Lungs and pleura: Right lateral costophrenic sulcus is not included on the film. No visible pleural effusions or pneumothorax. There is mild thickening of the bilateral lower lobe interstitial, less ex tensive compared to prior. Mediastinum: Mediastinal contours appear normal. Heart size is normal. Bones and chest wall: No suspicious bony lesions. Overlying soft tissues appear unremarkable. IMPRESSION: 1. Residual lower lobe interstitial prominence, scarring or fibrotic changes. 2. Near complete resolution of prior bilateral multifocal pneumonia. Reviewed by: Harmony Ferguson MD on 07/04/2021 9:39 PM PDT Approved by: Harmony Ferguson MD on 07/04/2021 9:39 PM PDT Station ID: [id number]
== END 2021-07-04 21:17 | disposition home or self-care (01) ==
LOC: ED 18:36
DX: F41.9 Anxiety disorder, unspecified (principal); R06.02 Shortness of breath; I10 Essential (primary) hypertension; I12.9 Hypertensive chronic kidney disease with stage 1 through stage 4 chronic kidney disease, or unspecified chronic kidney disease; N18.9 Chronic kidney disease, unspecified; F17.200 Nicotine dependence, unspecified, uncomplicated; Z99.2 Dependence on renal dialysis
CPT/HCPCS: 36415; 71045; 80048; 85025; 99283; 99284; J8499

== ENCOUNTER 2021-07-09 00:31 | Outpatient (CLI) | payer MEDICARE, MEDICAID | END 2021-07-09 00:32 | disposition critical access hospital (66) | LOC: EMS 00:31 | DX: R06.02 Shortness of breath (principal) | CPT/HCPCS: A0425; A0429 ==

== ENCOUNTER 2021-07-09 01:06 | Emergency (ER) | payer MEDICARE, MEDICAID ==
--- NOTE | 2021-07-09 04:28 | ED Physician Documentation ---
PD HPI DYSPNEA - Stated complaint Stated Complaint: SOA - Chief complaint Chief Complaint: Resp - History obtained from History obtained from: Patient, EMS - History of Present Illness Timing - onset: How many hours ago (12) Timing - duration: Hours (12) Timing - details: Gradual onset Pain level max: 0 Pain level now: 0 Associated symptoms: No: Fever, Cough, Wheezing, Chest pain / discomfort Recently seen: Emergency Dept (T+R 5 days ago) - Additional information Additional information: 7th [facility] ED visit over past 5 months including T+R 5 days ago; most of these visits have involved dyspnea as part of chief c/o. FLORENCIA Wilkes for c/o 12 hours dyspnea. He gets HD TIW, Tues/Thurs/Sat. He has not missed any recent sessions. EMS found patient to be in NAD including no apparent respiratory distress. Pulse ox was 91% room air; they initiated 6 liters/min and pulse ox improved to 95%. Review of Systems Constitutional: denies: Fever Cardiac: reports: Reviewed and negative Respiratory: reports: Dyspnea. denies: Cough, Hemoptysis, Wheezing GI: reports: Reviewed and negative Neurologic: denies: Generalized weakness, Headache PD PAST MEDICAL HISTORY - Past Medical History Past Medical History: Yes Cardiovascular: Hypertension, Arrhythmia Respiratory: None Neuro: Peripheral neuropathy, Seizure disorder Endocrine/Autoimmune: None GI: None : Dialysis, Renal insuffiency HEENT: None Musculoskeletal: Osteoarthritis, Gout Derm: Eczema, Psoriasis - Past Surgical History Past Surgical History: Yes General: Gastric surgery, Other Ortho: Amputation - Present Medications Home Medications: Ambulatory Orders Medication Instructions Recorded Confirmed Amlodipine Besylate [Norvasc] 10 mg PO DAILY 03/23/21 05/20/21 Cyclobenzaprine HCl 5 mg PO BID 03/23/21 05/20/21 Furosemide [Lasix] 80 mg PO DAILY 03/23/21 05/20/21 LORazepam [Ativan] 0.5 - 1 mg PO Q6H 03/23/21 05/20/21 Zolpidem [Ambien] 5 mg ORAL QPM PRN 03/23/21 05/20/21 oxyCODONE [Roxicodone] 10 mg PO Q3HR PRN 03/23/21 05/20/21 Albuterol Sulf [Ventolin Hfa 2 - 3 puffs INH Q4HR PRN #1 inhaler 05/14/21 05/20/21 Inhaler] Ipratropium/Albuterol [Combivent 4 gm IH Q4HR #1 inhaler 05/21/21 Respimat] levoFLOXacin [Levaquin] 250 mg PO QD #7 tablet 05/21/21 - Allergies Allergies/Adverse Reactions: Allergies Allergy/AdvReac Type Severity Reaction Status Date / Time ceftriaxone Allergy Respiratory Verified 07/09/21 01:32 gabapentin Allergy Unknown Verified 07/09/21 01:32 Penicillins Allergy Unknown Verified 07/09/21 01:32 povidone-iodine Allergy Unknown Verified 07/09/21 01:32 [From Betadine] prednisone Allergy Nausea Verified 07/09/21 01:32 soap [From Betadine] Allergy Unknown Verified 07/09/21 01:32 - Social History Does the pt smoke?: Yes Smoking Status: Current every day smoker Does the pt drink ETOH?: Yes Does the pt have substance abuse?: Yes - Immunizations Immunizations are current?: Yes - POLST Patient has POLST: No PD ED PE NORMAL - Vitals Vital signs reviewed: Yes - General General: Alert and oriented X 3, No acute distress, Well developed/nourished - HEENT HEENT: Moist mucous membranes - Neck Neck: Supple, no meningeal sign - Cardiac Cardiac: RRR, No murmur - Respiratory Respiratory: No respiratory distress PD ED PE EXPANDED - Respiratory Respiratory: Rales (bibasilar rales but no wheezing, no rhonchi, and good air movement) Results - Vitals Vitals: Vital Signs - 24 hr 07/09/21 07/09/21 07/09/21 01:23 03:27 05:00 Temperature 36.4 C L Heart Rate 80 73 79 Respiratory 15 14 14 Rate Blood Pressure 197/86 H 177/84 H 171/84 H O2 Saturation 98 97 92 07/09/21 07:00 Temperature 36.8 C Heart Rate 78 Respiratory 15 Rate Blood Pressure 174/89 H O2 Saturation 100 Oxygen O2 Source Room air - EKG (time done) No standard instances Rate: Rate (enter#) (80) Rhythm: NSR [place]: LAD, Anterior hemiblock Intervals: Normal [place] QRS: Normal Ischemia: Q waves (V1-V3), Non specific changes (ST elevations V2, V3 (no change compared to several previous EKGs)) - Rads (name of study) chest xray Radiology: Prelim report reviewed, See rad report PD MEDICAL DECISION MAKING - ED course Complexity details: reviewed results, re-evaluated patient, considered differential, d/w patient ED course: NAD during ED stay. oxygen was turned down to 0.5 l/min and then off. His pulse ox on room air was 94-95% when it was first turned off and, on reevaluation just prior to discharge, room air pulse ox is 97-98 %. He was in no respiratory distress during entire ED stay, speaking full sentences without difficulty. CXR suggest some degree of pulmonary edema and I suspect he will feel even better after his HD session that is scheduled for later today. Radiologist's interpretation of cxr calls into question possible infectious etiology component to abnormalities on the cxr, but no elements of H+P are particularly suggestive of infectious cause and thus shared decision made with patient to hold on antibiotics at this time, but to have lower threshold for returning if worse (such as worsening dyspnea, any coughing, any fever, for example) Departure - Departure Disposition: 01 Home, Self Care Clinical Impression: Pulmonary edema Qualifiers: Chronicity: acute Qualified Code(s): J81.0 - Acute pulmonary edema Condition: Good Instructions: Edema Pulmonary Discharge Date/Time: 07/09/21 07:24
[2021-07-09] MEDS ORDERED: FAMOTIDINE 20 MG TABLET PO STA (05:11)
[2021-07-09 07:24] VITALS: BP 174/89
--- NOTE | 2021-07-09 08:37 | XRAY Report ---
PROCEDURE: Chest 2 View X-Ray INDICATIONS: dyspnea TECHNIQUE: 2 view(s) of the chest. COMPARISON: Chest x-ray 07/04/2021. FINDINGS: Surgical changes and devices: None. Lungs and pleura: There is mild increased appearance of reticular nodular opacities within the lungs. Mediastinum: Mediastinal contours are normal. Heart size is normal. Bones and chest wall: No suspicious bony abnormalities. Soft tissues appear unremarkable. IMPRESSION: Mild increased opacities suspected to represent edema and/or superimposed airspace disea se such as developing pneumonia. The above findings are concordant with preliminary report. Reviewed by: Deisi Graff MD on 07/09/2021 8:36 AM PDT Approved by: Deisi Graff MD on 07/09/2021 8:36 AM PDT Station ID: [id number]
== END 2021-07-09 07:24 | disposition home or self-care (01) ==
LOC: EDUNIT# → ED 01:06 → SUPCPDRO 01:06 → ED 07:24
DX: J81.0 Acute pulmonary edema (principal); I10 Essential (primary) hypertension; F17.200 Nicotine dependence, unspecified, uncomplicated
CPT/HCPCS: 71046; 93005; 99283; 99284; A9270

== ENCOUNTER 2022-01-02 16:06 | Emergency (ER) | payer MEDICARE, MEDICAID ==
--- NOTE | 2022-01-02 16:38 | ED Physician Documentation ---
History of Present Illness - Stated complaint Stated Complaint: COUGH UP BLOOD - Chief complaint Chief Complaint: Resp - Additonal information Additional information: 56-year-old male Has a history of end-stage renal disease on 3 times weekly dialysis presents the emergency department for evaluation of blood-tinged sputum. He does report a chronic cough but today during dialysis it was blood- tinged. He denies chest pain or shortness of air. No fevers. He states that hemoptysis preceded episodes of flash pulmonary edema requiring hospitalization years ago. Review of Systems Constitutional: denies: Fever, Chills Nose: reports: Reviewed and negative Throat: reports: Reviewed and negative Cardiac: denies: Chest pain / pressure, Palpitations, Pedal edema Respiratory: reports: Cough, Hemoptysis. denies: Dyspnea, Wheezing GI: reports: Reviewed and negative : reports: Reviewed and negative Skin: reports: Reviewed and negative PD PAST MEDICAL HISTORY - Past Medical History Cardiovascular: Hypertension, Arrhythmia Respiratory: None Neuro: Peripheral neuropathy, Seizure disorder Endocrine/Autoimmune: None GI: None : Dialysis, Renal insuffiency HEENT: None Musculoskeletal: Osteoarthritis, Gout Derm: Eczema, Psoriasis - Past Surgical History Past Surgical History: Yes General: Gastric surgery, Other Ortho: Amputation - Present Medications Home Medications: Ambulatory Orders Medication Instructions Recorded Confirmed Amlodipine Besylate [Norvasc] 10 mg PO DAILY 03/23/21 05/20/21 Cyclobenzaprine HCl 5 mg PO BID 03/23/21 05/20/21 Furosemide [Lasix] 80 mg PO DAILY 03/23/21 05/20/21 LORazepam [Ativan] 0.5 - 1 mg PO Q6H 03/23/21 05/20/21 Zolpidem [Ambien] 5 mg ORAL QPM PRN 03/23/21 05/20/21 oxyCODONE [Roxicodone] 10 mg PO Q3HR PRN 03/23/21 05/20/21 Albuterol Sulf [Ventolin Hfa 2 - 3 puffs INH Q4HR PRN #1 inhaler 05/14/21 05/20/21 Inhaler] Ipratropium/Albuterol [Combivent 4 gm IH Q4HR #1 inhaler 05/21/21 Respimat] levoFLOXacin [Levaquin] 250 mg PO QD #7 tablet 08/03/21 - Allergies Allergies/Adverse Reactions: Allergies Allergy/AdvReac Type Severity Reaction Status Date / Time ceftriaxone Allergy Respiratory Verified 01/02/22 16:31 gabapentin Allergy Unknown Verified 01/02/22 16:31 Penicillins Allergy Unknown Verified 01/02/22 16:31 povidone-iodine Allergy Unknown Verified 01/02/22 16:31 [From Betadine] prednisone Allergy Nausea Verified 01/02/22 16:31 soap [From Betadine] Allergy Unknown Verified 01/02/22 16:31 - Social History Does the pt smoke?: Yes Smoking Status: Current every day smoker Does the pt drink ETOH?: Yes Does the pt have substance abuse?: Yes - Immunizations Immunizations are current?: Yes - POLST Patient has POLST: No PD ED PE NORMAL - General General: Alert and oriented X 3, No acute distress, Well developed/nourished - HEENT HEENT: Atraumatic, Moist mucous membranes, Pharynx benign - Neck Neck: Supple, no meningeal sign, Thyroid normal, No JVD - Cardiac Cardiac: RRR, No murmur, Strong equal pulses, Other (Left AKA). 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, No motor deficit Eye Opening: Spontaneous Motor: Obeys Commands Verbal: Oriented GCS Score: 15 Results - Vitals Vitals: Vital Signs - 24 hr 01/02/22 01/02/22 16:27 16:54 Temperature 36.8 C Heart Rate 62 68 Respiratory 16 18 Rate Blood Pressure 183/84 H 183/89 H O2 Saturation 98 99 Oxygen O2 Source Room air - Rads (name of study) cxr Radiology: Final report received (No acute cardiopulmonary process) PD MEDICAL DECISION MAKING - ED course Complexity details: reviewed results, re-evaluated patient, considered differential, d/w patient ED course: 56-year-old male history turned to the ER after his dialysis appointment for evaluation of hemoptysis. Reports that he has had a cough for about 18 months. Today when he coughed a dialysis it was blood-tinged. Not bright red. He denies that he has any fevers, chest pain or shortness of air. Cardiopulmonary auscultation was unremarkable. Room air saturations 99%. Chest x-ray is without acute focal findings to suggest pneumonia or pulmonary edema. Chest x- ray findings were discussed with the patient. He feels safe for discharge home. Discussed that should he develop bright red hemoptysis, sudden chest pain or shortness of air then to please return immediately to the ER Departure - Departure Disposition: 01 Home, Self Care Clinical Impression: Bloody sputum Condition: Stable Record reviewed to determine appropriate education?: Yes Comments: Rao marino are seen today in the emergency department for bloody sputum when you coughed during her dialysis treatment. Your chest x-ray today is essentially normal. Your heart size is normal. There is nothing to suggest pulmonary edema or pneumonia. Your oxygen levels are also normal here in the emergency department. You should continue to monitor your symptoms at home. If at any point you develop fevers, have sudden severe chest pain or shortness of air or have copious amounts of bright red or bloody sputum then please return immediately to the ER for second evaluation.
--- NOTE | 2022-01-02 16:51 | XRAY Report ---
PROCEDURE: Chest 1 View X-Ray INDICATIONS: chest pain TECHNIQUE: One view of the chest was acquired. COMPARISON: Chest x-ray 07/09/2021 FINDINGS: Surgical changes and devices: None. Lungs and pleura: No pleural effusions or pneumothorax. Lungs are clear. Lungs are hyperexpanded. Mediastinum: Mediastinal contours appear normal. Heart size is normal. Bones and chest wall: No suspicious bony lesions. Overlying soft tissues appear unremarkable. IMPRESSION: No acute pulmonary process. Reviewed by: Deisi Graff MD on 01/02/2022 4:49 PM PDT Approved by: Deisi Graff MD on 01/02/2022 4:49 PM PDT Station ID: [id number]
[2022-01-02 17:10] VITALS: BP 180/70
== END 2022-01-02 17:05 | disposition home or self-care (01) ==
LOC: ED 16:06
DX: R04.2 Hemoptysis (principal); I12.0 Hypertensive chronic kidney disease with stage 5 chronic kidney disease or end stage renal disease; N18.6 End stage renal disease; Z99.2 Dependence on renal dialysis; F17.200 Nicotine dependence, unspecified, uncomplicated
CPT/HCPCS: 99282; 99283

== ENCOUNTER 2022-06-20 14:48 | Outpatient (CLI) | payer MEDICARE, MEDICAID ==
--- NOTE | 2022-06-20 17:54 | Ultrasound Report ---
PROCEDURE: Duplex Scan Hemodialysis Access INDICATIONS: DEPENDENCE ON RENAL DIALYSIS, END STAGE RENAL DISE TECHNIQUE: Color and pulse Doppler interrogation was performed of the upper extremity arteriovenous fistula, wit h image documentation. COMPARISON: None. FINDINGS: [place] vessel inflow: 0.9 cm in diameter, peak systolic velocity 173 cm/sec. Flow volume is 2400 mL /min Proximal fistula anastomosis: 0.9 cm in diameter, peak systolic velocity 192 cm/s, flow volume 2867 mL/ min Mid fistula: 1.5 cm in diameter, peak systolic velocity 77.5 cm/s, flow volume 1986 mL per min Distal fistula: 1.0 cm in diameter, peak systolic velocity 62.2 cm/s, flow volume 1196 mL per min Distal anastomosis 1.0 cm in diameter, peak systolic velocity 160.9 cm/s, flow volume 3192 mL per mi n Brachial vein distal to the aVF diameter is 0.5 cm. Intraluminal thrombus: None. A small superficial pseudoaneurysm at the distal fistula with a 4 mm nec k. Superficial to the distal aspect of the fistula, there is a crossing, unrelated patent vein. IMPRESSION: 1. Adequate flow volume throughout the fistula. 2. Possible developing outflow stenosis due to elevated peak systolic velocity at the aVF distal anas tomotic site versus velocity within the mid graft. 3. Small pseudoaneurysm, likely prior access site in the distal fistula. 4. Incidental note of [place], unrelated vein crosses the distal fistula. Reviewed by: Harmony Ferguson MD on 06/20/2022 5:53 PM PDT Approved by: Harmony Ferguson MD on 06/20/2022 5:53 PM PDT Station ID: [id number]
== END 2022-06-20 14:49 | disposition home or self-care (01) ==
LOC: DI 14:48
PROVIDERS: ATTEND Nurse Practitioner
DX: N18.6 End stage renal disease (principal); Z99.2 Dependence on renal dialysis; T82.510A Breakdown (mechanical) of surgically created arteriovenous fistula, initial encounter; T82.590S Other mechanical complication of surgically created arteriovenous fistula, sequela
CPT/HCPCS: 93990

== ENCOUNTER 2023-03-11 14:23 | Outpatient (CLI) | payer MEDICARE, MEDICAID | END 2023-03-11 14:24 | disposition home or self-care (01) | LOC: LAB.S 14:23 | PROVIDERS: ATTEND Anesthesiology Pain Medicine | DX: R34 Anuria and oliguria (principal); F11.90 Opioid use, unspecified, uncomplicated; Z79.899 Other long term (current) drug therapy ==

== ENCOUNTER 2023-04-14 10:43 | Outpatient (CLI) | payer MEDICARE | END 2023-04-14 23:59 | disposition short-term general hospital (02) | LOC: EMS 10:43 | DX: R53.1 Weakness (principal); I10 Essential (primary) hypertension; Z99.2 Dependence on renal dialysis | CPT/HCPCS: A0425; A0429 ==

== ENCOUNTER 2024-01-17 08:00 | Outpatient (CLI) | payer MEDICARE | END 2024-01-17 23:59 | disposition home or self-care (01) | LOC: PC 08:00 | PROVIDERS: ATTEND Nurse Practitioner Adult Health | DX: Z51.5 Encounter for palliative care (principal); N18.6 End stage renal disease; G89.4 Chronic pain syndrome | CPT/HCPCS: 99426 ==

== ENCOUNTER 2024-02-16 08:00 | Outpatient (CLI) | payer MEDICARE | END 2024-02-16 23:59 | disposition home or self-care (01) | LOC: PC 08:00 | PROVIDERS: ATTEND Nurse Practitioner Adult Health | DX: Z51.5 Encounter for palliative care (principal); N18.6 End stage renal disease; G89.29 Other chronic pain | CPT/HCPCS: 99426 ==

== ENCOUNTER 2024-02-23 11:30 | Outpatient (CLI) | payer MEDICARE | END 2024-02-23 23:59 | disposition home or self-care (01) | LOC: PC 11:30 | PROVIDERS: ATTEND Nurse Practitioner Adult Health | DX: Z51.5 Encounter for palliative care (principal); N18.6 End stage renal disease; Z99.2 Dependence on renal dialysis; G89.4 Chronic pain syndrome; G54.6 Phantom limb syndrome with pain; F43.10 Post-traumatic stress disorder, unspecified; F41.9 Anxiety disorder, unspecified; F41.0 Panic disorder [episodic paroxysmal anxiety]; R63.0 Anorexia; R68.81 Early satiety; M62.81 Muscle weakness (generalized); Z79.891 Long term (current) use of opiate analgesic; Z89.612 Acquired absence of left leg above knee; Z79.899 Other long term (current) drug therapy | CPT/HCPCS: 99215 ==

== ENCOUNTER 2024-03-18 08:00 | Outpatient (CLI) | payer MEDICARE | END 2024-03-18 23:59 | disposition home or self-care (01) | LOC: PC 08:00 | PROVIDERS: ATTEND Nurse Practitioner Adult Health | DX: Z51.5 Encounter for palliative care (principal); N18.6 End stage renal disease; G89.29 Other chronic pain; Z89.619 Acquired absence of unspecified leg above knee | CPT/HCPCS: 99426 ==

== ENCOUNTER 2024-04-28 14:45 | Outpatient (CLI) | payer MEDICARE ==
--- NOTE | 2024-05-02 17:57 | Ultrasound Report ---
PROCEDURE: Hemodialysis Access INDICATIONS: AV FISTULA STENOSIS TECHNIQUE: Color and pulse Doppler interrogation was performed of the upper extremity arteriovenous fistula, wit h image documentation. COMPARISON: 06/20/2022 FINDINGS: [place] vessel inflow: 100 cm/sec. Diameter measures 0.7 cm, flow volume of 13.9 mL/s. Proximal fistula anastomosis: 93 cm/sec. Diameter of 0.57 cm. Flow volume of 8.6 mL/s. Proximal fistula: 126 cm/sec. Diameter of 0.92 cm. Flow volume of 28 mL/s. Mid fistula: 110-320 cm/sec. Diameter of 1.61-0.24 cm. The flow volume of 9.3-58 mL/s. Distal fistula anastomosis: 209 cm/sec. Diameter 0.64 centimeters. Flow volume of 19.3 mL/s. [place] vessel outflow: 185 cm/sec. Diameter of 0.47 cm. For volume of 13.5 mL/s. Intraluminal thrombus: None. IMPRESSION: Adequate flow volume throughout the fistula. Hemodynamically significant stenosis of the mid fistula, measuring 320 cm/s, diameter of 0.24 cm. Reviewed by: Antelmo Ritchie MD on 05/02/2024 4:56 PM RIDGE Approved by: Antelmo Ritchie MD on 05/02/2024 4:56 PM [id number] Station ID: [id number]
== END 2024-04-28 14:46 | disposition home or self-care (01) ==
LOC: DI 14:45
PROVIDERS: ATTEND Internal Medicine Nephrology
DX: T82.858A Stenosis of other vascular prosthetic devices, implants and grafts, initial encounter (principal)
CPT/HCPCS: 93990

== ENCOUNTER 2024-05-18 08:00 | Outpatient (CLI) | payer MEDICARE | END 2024-05-18 23:59 | disposition home or self-care (01) | LOC: PC 08:00 | PROVIDERS: ATTEND Nurse Practitioner Adult Health | DX: Z51.5 Encounter for palliative care (principal); N18.6 End stage renal disease; G89.4 Chronic pain syndrome | CPT/HCPCS: 99426 ==

== ENCOUNTER 2024-05-26 08:00 | Outpatient (CLI) | payer MEDICARE | END 2024-05-26 23:59 | disposition home or self-care (01) | LOC: PC 08:00 | PROVIDERS: ATTEND Nurse Practitioner Adult Health | DX: Z51.5 Encounter for palliative care (principal); N18.6 End stage renal disease; S77 Crushing injury of hip and thigh; Z99.2 Dependence on renal dialysis; Z79.891 Long term (current) use of opiate analgesic; Z89.612 Acquired absence of left leg above knee; G89.4 Chronic pain syndrome; Z60.8 Other problems related to social environment; F41.9 Anxiety disorder, unspecified; F41.0 Panic disorder [episodic paroxysmal anxiety]; F43.10 Post-traumatic stress disorder, unspecified; R43.9 Unspecified disturbances of smell and taste; R11.0 Nausea; R68.81 Early satiety; Z71.89 Other specified counseling; Z79.899 Other long term (current) drug therapy | CPT/HCPCS: 99349 ==